=== PATIENT | male | born 1990 | race Two or more races ===

== ENCOUNTER 2021-01-18 16:38 | Emergency (ER) | payer MEDICAID, OTHER ==
[~2021-01-18] VITALS: Ht 170.2 cm; Wt 63.5 kg
[2021-01-18 18:42] VITALS: BP 118/58
[2021-01-18] MEDS ORDERED: IBUPROFEN 800 MG TAB PO ONE (18:45)
== END 2021-01-18 19:56 | disposition home or self-care (01) ==
LOC: ER 16:38
DX: S46.912A Strain of unspecified muscle, fascia and tendon at shoulder and upper arm level, left arm, initial encounter (principal); W19.XXXA Unspecified fall, initial encounter; Y93.89 Activity, other specified; Y92.89 Other specified places as the place of occurrence of the external cause; Y99.8 Other external cause status
CPT/HCPCS: 71045; 73030

== ENCOUNTER 2021-06-06 18:18 | Emergency (ER) | payer MEDICAID ==
[~2021-06-06] VITALS: Ht 172.7 cm; Wt 86.2 kg
[2021-06-06 18:43] VITALS: BP 126/68
== END 2021-06-06 19:30 | disposition home or self-care (01) ==
LOC: ER 18:19
DX: S11.81XD Laceration without foreign body of other specified part of neck, subsequent encounter (principal); X58.XXXD Exposure to other specified factors, subsequent encounter

== ENCOUNTER 2021-06-09 16:51 | Emergency (ER) | payer MEDICAID ==
[~2021-06-09] VITALS: Ht 172.7 cm; Wt 86.2 kg
[2021-06-09] MEDS ORDERED: SODIUM CHLORIDE 0.9% 1,000 ML IVB ONE (17:15)
[2021-06-09 18:34] LABS: Alcohol, Urine < 3.0 mg/dL (0-10); Amphetamine Screen, Urine NEGATIVE (NEGATIVE); Barbiturate Scree,Urine NEGATIVE (NEGATIVE); Benzodiazephine Screen, Urine NEGATIVE (NEGATIVE); Cannabinoid Screen, Urine NEGATIVE (NEGATIVE); Cocaine Screen, Urine NEGATIVE (NEGATIVE); Opiate Scree,Urine NEGATIVE (NEGATIVE); Phencyclidine Screen, Urine NEGATIVE (NEGATIVE)
[2021-06-09 19:26] LABS: Basophils # (auto) 0 10 ^3/uL (0-0.2); Basophils % (auto) 0.3 % (0.0-2.0); Eosinophils # (auto) 0.1 10 ^3/uL (0-0.8); Eosinophils % (auto) 1.2 % (0.0-7.0); Hematocrit 37.8 % (41.0-53.0); Hemoglobin 12.9 g/dL (13.5-17.5); Lymphocytes # (auto) 2.2 10 ^3/uL (0.4-5.4); Lymphocytes % (auto) 28.5 % (10.0-50.0); Mean Corpuscular Hemoglobin 30.6 pg (28.0-32.0); Mean Corpuscular Hgb Conc. 34.3 g/dL (32.0-36.0); Mean Corpuscular Volume 89.3 fL (80.0-100.0); Monocytes # (auto) 0.3 10 ^3/uL (0-1.3); Monocytes % (auto) 3.9 % (0.0-12.0); Neutrophils % (auto) 66.1 % (37.0-80.0); Red Blood Cells 4.23 10^6/uL (4.5-5.90); Red Cell Distribution Width 13.9 % (11.8-14.3); White Blood Cell 7.6 10^3/uL (4.4-10.8)
[2021-06-09 19:40] LABS: Alanine Aminotransferase 30 U/L (16-61); Albumin 3.2 g/dL (3.4-5.0); Anion Gap 9 (5-15); Aspartate Aminotransferase 9 U/L (15-37); BUN/Creatinine Ratio 9.3; Blood Alcohol < 3.0 mg/dL (0-5); Blood Urea Nitrogen 10 mg/dL (7-18); Calcium 7.7 mg/dL (8.5-10.1); Carbon Dioxide 23 mmol/L (21-32); Chloride 112 mmol/L (98-107); GFR African American 101 mL/min; GFR Non-African American 84 mL/min; Glucose 99 mg/dL (74-106); Magnesium 2.4 mg/dL (1.6-2.6); Potassium 4.1 mmol/L (3.5-5.1); Sodium 144 mmol/L (136-145)
[2021-06-09 19:42] LABS: Alkaline Phosphatase 61 U/L (45-117); Bilirubin, Total 0.1 mg/dL (0.2-1.0)
[2021-06-09 19:46] LABS: Salicylate < 1.7 mg/dL (2.8-20.0)
[2021-06-09 19:49] LABS: Acetaminophen < 2.0 ug/mL (10-30)
[2021-06-09] MEDS ORDERED: ACTIVATED CHARCOAL 50 GM/240 ML SOL PO ONE (21:00)
[2021-06-09] MEDS: LEVOCARNITINE 330 MG TAB PO SCH (22:16)
[2021-06-10] MEDS: LEVOCARNITINE 330 MG TAB PO SCH ×2 (06:00→15:59)
[2021-06-10] MEDS ORDERED: SODIUM CHLORIDE 0.9% 1,000 ML IVB ONE (08:15)
[2021-06-10 09:29] LABS: Blood Alcohol < 3.0 mg/dL (0-5); Magnesium 2.2 mg/dL (1.6-2.6)
[2021-06-10 10:16] LABS: Urine Bacteria NONE SEEN /hpf (None Seen); Urine Blood Negative /uL (Negative); Urine Mucus FEW (None Seen); Urine Specific Gravity 1.028 (1.001-1.035); Urine WBC 2 /hpf (0 - 3)
[2021-06-10 10:29] LABS: Alcohol, Urine < 3.0 mg/dL (0-10); Amphetamine Screen, Urine NEGATIVE (NEGATIVE); Barbiturate Scree,Urine NEGATIVE (NEGATIVE); Benzodiazephine Screen, Urine NEGATIVE (NEGATIVE); Cannabinoid Screen, Urine NEGATIVE (NEGATIVE); Cocaine Screen, Urine NEGATIVE (NEGATIVE); Opiate Scree,Urine NEGATIVE (NEGATIVE); Phencyclidine Screen, Urine NEGATIVE (NEGATIVE)
[2021-06-10 10:30] LABS: Calcium 7.4 mg/dL (8.5-10.1); Potassium 3.7 mmol/L (3.5-5.1)
[2021-06-10 10:33] LABS: BUN/Creatinine Ratio 14.3; Bilirubin, Total 0.3 mg/dL (0.2-1.0); Total Protein 6.7 g/dL (6.4-8.2)
[2021-06-11] MEDS: OLANZapine 5 MG TAB PO SCH ×4 (06:58→21:35)
[2021-06-11] MEDS: TEMAZEPAM 15 MG CAP PO PRN (20:54)
[2021-06-12] MEDS: OLANZapine 5 MG TAB PO SCH ×4 (06:22→21:56)
[2021-06-12] MEDS: TEMAZEPAM 15 MG CAP PO PRN (21:56)
[2021-06-13] MEDS ORDERED: OLANZapine 5 MG TAB ONE ×2 (06:43→13:05)
[2021-06-13] MEDS: OLANZapine 5 MG TAB PO SCH ×4 (06:56→21:57)
[2021-06-13] MEDS ORDERED: ACETAMINOPHEN 325 MG TAB PO ONE (14:45)
[2021-06-14] MEDS: OLANZapine 5 MG TAB PO SCH (06:58)
[2021-06-14 07:45] VITALS: BP 116/71
[2021-07-02] MEDS ORDERED: BUPR100T15 PO (19:07)
== END 2021-06-14 12:45 | disposition left against medical advice (07) ==
LOC: ER 16:51 → EDBD 16:51 → ER 06-14 12:45
DX: T42.6X1A Poisoning by other antiepileptic and sedative-hypnotic drugs, accidental (unintentional), initial encounter (principal); Z20.822 Contact with and (suspected) exposure to COVID-19; Y92.89 Other specified places as the place of occurrence of the external cause
CPT/HCPCS: 36415; 71046; 80053; 80164; 80307; 80320; 80329; 81001; 82140; 83735; 85025; 87426; 93005; 96360; 96361; 99285; J7030

== ENCOUNTER 2021-06-16 16:10 | Inpatient (IN) | payer MEDICAID ==
[~2021-06-16] VITALS: Ht 172.7 cm; Wt 74.7 kg
[2021-06-16] MEDS ORDERED: HALOPERIDOL LACTATE 5 MG/ML INJ VIAL ONE (17:36)
[2021-06-16] MEDS ORDERED: LORazepam 2MG/ML-1ML VIAL ONE ×2 (17:36→21:10)
[2021-06-16] MEDS ORDERED: diphenhdrAMINE HCL 50 MG/1 ML VL ONE (17:36)
[2021-06-16] MEDS ORDERED: MIDAZOLAM HCL 2MG/2ML 2ml VIAL (1mg/ml) ONE (18:10)
[2021-06-16] MEDS ORDERED: HALOPERIDOL LACTATE 5 MG/ML INJ VIAL IM ONE (18:15)
[2021-06-16] MEDS ORDERED: MIDAZOLAM HCL 5 MG/ML-1ML VIAL IV ONE (18:15)
[2021-06-16] MEDS ORDERED: diphenhdrAMINE HCL 50 MG/1 ML VL IV ONE (18:15)
[2021-06-16] MEDS ORDERED: LORazepam 2MG/ML-1ML VIAL IM ONE (18:15)
[2021-06-16 19:16] LABS: Basophils # (auto) 0 10 ^3/uL (0-0.2); Basophils % (auto) 0.4 % (0.0-2.0); Eosinophils # (auto) 0.1 10 ^3/uL (0-0.8); Eosinophils % (auto) 0.8 % (0.0-7.0); Hematocrit 36.8 % (41.0-53.0); Hemoglobin 12.7 g/dL (13.5-17.5); Lymphocytes # (auto) 1.1 10 ^3/uL (0.4-5.4); Lymphocytes % (auto) 11.7 % (10.0-50.0); Mean Corpuscular Hemoglobin 30.6 pg (28.0-32.0); Mean Corpuscular Hgb Conc. 34.6 g/dL (32.0-36.0); Mean Corpuscular Volume 88.4 fL (80.0-100.0); Monocytes # (auto) 0.5 10 ^3/uL (0-1.3); Monocytes % (auto) 5.5 % (0.0-12.0); Neutrophils # (auto) 7.5 10 ^3/uL (1.6-8.6); Neutrophils % (auto) 81.6 % (37.0-80.0); Nucleated Red Blood Cells % 0.1 %; Red Blood Cells 4.16 10^6/uL (4.5-5.90); Red Cell Distribution Width 14.4 % (11.8-14.3); White Blood Cell 9.2 10^3/uL (4.4-10.8)
[2021-06-16 19:26] LABS: Albumin 3.5 g/dL (3.4-5.0); BUN/Creatinine Ratio 8.5; Calcium 8.1 mg/dL (8.5-10.1); Potassium 3.4 mmol/L (3.5-5.1)
[2021-06-16 19:29] LABS: Bilirubin, Total 0.2 mg/dL (0.2-1.0); Total Protein 7.1 g/dL (6.4-8.2)
[2021-06-16 19:35] LABS: Acetaminophen < 2.0 ug/mL (10-30); Salicylate < 1.7 mg/dL (2.8-20.0)
[2021-06-16 20:24] LABS: Urine Bacteria FEW /hpf (None Seen); Urine Blood Negative /uL (Negative); Urine Mucus FEW (None Seen); Urine Specific Gravity 1.022 (1.001-1.035); Urine WBC 1 /hpf (0 - 3)
[2021-06-16 20:54] LABS: Amphetamine Screen, Urine NEGATIVE (NEGATIVE); Barbiturate Scree,Urine NEGATIVE (NEGATIVE); Benzodiazephine Screen, Urine POSITIVE (NEGATIVE); Cannabinoid Screen, Urine NEGATIVE (NEGATIVE); Cocaine Screen, Urine NEGATIVE (NEGATIVE); Opiate Scree,Urine NEGATIVE (NEGATIVE); Phencyclidine Screen, Urine NEGATIVE (NEGATIVE)
[2021-06-16] MEDS ORDERED: LORazepam 2MG/ML-1ML VIAL IV ONE (21:30)
[2021-06-16] MEDS ORDERED: TEMAZEPAM 15 MG CAP PO PRN (22:15)
[2021-06-16] MEDS ORDERED: NITROGLYCERIN 0.4 MG SL TAB SL PRN (22:15)
[2021-06-16] MEDS ORDERED: ACETAMINOPHEN 325 MG TAB PO PRN (22:15)
[2021-06-16] MEDS ORDERED: ONDANSETRON HCL 4 MG/2 ML VIAL IV PRN (22:15)
[2021-06-16] MEDS ORDERED: MORPHINE SULFATE INJECTION 2 MG/2 ML SYRG IV PRN (22:15)
[2021-06-16] MEDS ORDERED: HYDROcodone-ACET 5/325MG TAB PO PRN (22:15)
[2021-06-17 05:15] LABS: Basophils # (auto) 0.1 10 ^3/uL (0-0.2); Basophils % (auto) 0.5 % (0.0-2.0); Eosinophils # (auto) 0.1 10 ^3/uL (0-0.8); Eosinophils % (auto) 0.5 % (0.0-7.0); Hematocrit 38.6 % (41.0-53.0); Hemoglobin 13.3 g/dL (13.5-17.5); Lymphocytes # (auto) 1.5 10 ^3/uL (0.4-5.4); Lymphocytes % (auto) 10.7 % (10.0-50.0); Mean Corpuscular Hemoglobin 30.4 pg (28.0-32.0); Mean Corpuscular Hgb Conc. 34.5 g/dL (32.0-36.0); Mean Corpuscular Volume 88.3 fL (80.0-100.0); Monocytes # (auto) 1.3 10 ^3/uL (0-1.3); Monocytes % (auto) 9.5 % (0.0-12.0); Neutrophils # (auto) 10.8 10 ^3/uL (1.6-8.6); Neutrophils % (auto) 78.8 % (37.0-80.0); Red Blood Cells 4.38 10^6/uL (4.5-5.90); Red Cell Distribution Width 14.3 % (11.8-14.3); White Blood Cell 13.7 10^3/uL (4.4-10.8)
[2021-06-17 05:16] LABS: Calcium 8.3 mg/dL (8.5-10.1); Potassium 3.8 mmol/L (3.5-5.1)
[2021-06-17 05:19] LABS: Albumin 3.5 g/dL (3.4-5.0); BUN/Creatinine Ratio 9.7
[2021-06-17 05:22] LABS: Bilirubin, Total 0.3 mg/dL (0.2-1.0); Total Protein 7.5 g/dL (6.4-8.2)
[2021-06-17] MEDS: LORazepam 2MG/ML-1ML VIAL IV PRN ×3 (08:25→15:44)
[2021-06-17] MEDS ORDERED: HALOPERIDOL LACTATE 5 MG/ML INJ VIAL IM ONE ×2 (08:45→17:45)
[2021-06-17] MEDS ORDERED: diphenhdrAMINE HCL 50 MG/1 ML VL IV ONE ×2 (08:45→17:45)
[2021-06-17] MEDS ORDERED: LORazepam 2MG/ML-1ML VIAL IV ONE (09:30)
[2021-06-17] MEDS ORDERED: SODIUM CHLORIDE 0.9% 1,000 ML IV ONE ×2 (09:30)
[2021-06-17] MEDS: FAMOTIDINE (10MG/ML) 2ML VL IV SCH ×2 (12:23→22:41)
[2021-06-17] MEDS: ENOXAPARIN SOD 40 MG/0.4 ML SYRINGE SC SCH (12:23)
[2021-06-17] MEDS: FOLIC ACID 1 MG, MULTIPLE VITAMIN 10 ML, MAGNESIUM SULF SDV 50% 8 MEQ, THIAMINE INJ 100... INJ SCH ×5 (13:09)
[2021-06-17] MEDS ORDERED: LORazepam 2MG/ML-1ML VIAL IV PRN (17:45)
[2021-06-18] MEDS: MIDAZOLAM DRIP 50 mg/50mL 50 ML IV SCH ×2 (03:00→20:00)
[2021-06-18] MEDS: LORazepam 2MG/ML-1ML VIAL IV PRN ×2 (05:36→15:49)
[2021-06-18] MEDS ORDERED: HALOPERIDOL LACTATE 5 MG/ML INJ VIAL IM ONE (06:00)
[2021-06-18] MEDS: FAMOTIDINE (10MG/ML) 2ML VL IV SCH ×2 (11:24→22:48)
[2021-06-18] MEDS: ENOXAPARIN SOD 40 MG/0.4 ML SYRINGE SC SCH (11:24)
[2021-06-18] MEDS: FOLIC ACID 1 MG, MULTIPLE VITAMIN 10 ML, MAGNESIUM SULF SDV 50% 8 MEQ, THIAMINE INJ 100... INJ SCH ×5 (12:02)
[2021-06-18] MEDS: VALPROATE INJ 500 MG in SODIUM CHL 0.9% 100 ML IV SCH ×2 (15:55→22:52)
[2021-06-18] MEDS ORDERED: HALOPERIDOL LACTATE 5 MG/ML INJ VIAL IM PRN (16:00)
[2021-06-18] MEDS ORDERED: SUCCINYLCHOLINE CHLORIDE 20 MG/ML 10ML VIAL IV ONE ×2 (17:58→18:00)
[2021-06-18 18:00] VITALS: BP 110/82
[2021-06-18] MEDS ORDERED: MIDAZOLAM DRIP 50 mg/50mL 50 ML IV ONE (18:01)
[2021-06-18] MEDS ORDERED: ETOMIDATE (2MG/ML) 20ML VIAL IV ONE ×2 (18:02→18:15)
[2021-06-18] MEDS ORDERED: NOREPINEPHRINE 8 MG/250ML KIT 250 ML IV ONE (18:10)
[2021-06-18] MEDS ORDERED: PROPOFOL 100 ML IV ONE (18:11)
[2021-06-18] MEDS ORDERED: fentaNYL Drip 2500mCg/250mlNS 250 ML IV ONE (18:12)
[2021-06-18] MEDS: fentaNYL Drip 2500mCg/250mlNS 250 ML IV SCH (20:00)
[2021-06-18] MEDS: PROPOFOL 100 ML IV SCH (20:00)
[2021-06-18] MEDS: NOREPINEPHRINE 8 MG/250ML KIT 250 ML IV SCH (20:00)
[2021-06-18 20:10] VITALS: BP 113/64
[2021-06-18] MEDS: traZODone HCL 50 MG TAB PO SCH (21:47)
[2021-06-18 22:05] VITALS: BP 107/63
[2021-06-19] VITALS (84 sets, daily range): BP systolic 82–124; BP diastolic 39–71
[2021-06-19] MEDS: ACETAMINOPHEN 650 MG RECT SUPP PR PRN (03:59)
[2021-06-19] MEDS: PROPOFOL 100 ML IV SCH ×7 (04:00→18:30)
[2021-06-19] MEDS: MIDAZOLAM DRIP 50 mg/50mL 50 ML IV SCH ×3 (08:28→14:45)
[2021-06-19] MEDS: OLANZapine 5 MG TAB PO SCH (09:55)
[2021-06-19] MEDS: FAMOTIDINE (10MG/ML) 2ML VL IV SCH ×2 (09:55→22:00)
[2021-06-19] MEDS: ENOXAPARIN SOD 40 MG/0.4 ML SYRINGE SC SCH (09:55)
[2021-06-19] MEDS: EMTRICITABINE 200 MG PO SCH (10:00)
[2021-06-19] MEDS: VALPROATE INJ 500 MG in SODIUM CHL 0.9% 100 ML IV SCH ×2 (10:08→22:00)
[2021-06-19] MEDS: FOLIC ACID 1 MG, MULTIPLE VITAMIN 10 ML, MAGNESIUM SULF SDV 50% 8 MEQ, THIAMINE INJ 100... INJ SCH ×5 (11:28)
[2021-06-19 14:43] LABS: Basophils # (auto) 0.1 10 ^3/uL (0-0.2); Basophils % (auto) 0.4 % (0.0-2.0); Eosinophils # (auto) 0.1 10 ^3/uL (0-0.8); Eosinophils % (auto) 0.7 % (0.0-7.0); Hematocrit 41.4 % (41.0-53.0); Hemoglobin 14.3 g/dL (13.5-17.5); Lymphocytes # (auto) 1.6 10 ^3/uL (0.4-5.4); Lymphocytes % (auto) 11.9 % (10.0-50.0); Mean Corpuscular Hemoglobin 30.4 pg (28.0-32.0); Mean Corpuscular Hgb Conc. 34.5 g/dL (32.0-36.0); Mean Corpuscular Volume 88.2 fL (80.0-100.0); Monocytes # (auto) 1.5 10 ^3/uL (0-1.3); Monocytes % (auto) 11.5 % (0.0-12.0); Neutrophils # (auto) 10.2 10 ^3/uL (1.6-8.6); Neutrophils % (auto) 75.5 % (37.0-80.0); Red Cell Distribution Width 14.3 % (11.8-14.3); White Blood Cell 13.5 10^3/uL (4.4-10.8)
[2021-06-19] MEDS: cefTRIAXone 1GM/50ML D5W 50 ML IV SCH (14:44)
[2021-06-19 15:00] LABS: Albumin 2.9 g/dL (3.4-5.0); Magnesium 2.7 mg/dL (1.6-2.6); Potassium 3.4 mmol/L (3.5-5.1)
[2021-06-19 15:04] LABS: BUN/Creatinine Ratio 8.9; Bilirubin, Total 0.9 mg/dL (0.2-1.0); Phosphorus 4.5 mg/dL (2.5-4.90); Total Protein 7.6 g/dL (6.4-8.2)
[2021-06-19 15:05] LABS: INR 1.03 (0.9-1.15); Partial Thromboplastin Time 26.7 sec (23.0-31.2)
[2021-06-19] MEDS: fentaNYL Drip 2500mCg/250mlNS 250 ML IV SCH ×2 (17:17→18:30)
[2021-06-19] MEDS: NOREPINEPHRINE 8 MG/250ML KIT 250 ML IV SCH (18:30)
[2021-06-19] MEDS: SODIUM CHLOR 0.9% PF (SALINE LOCK) 10ML VIAL/SYR IV SCH (22:00)
[2021-06-19 22:50] LABS: Urine Bacteria NONE SEEN /hpf (None Seen); Urine Blood Negative /uL (Negative); Urine WBC 5 /hpf (0 - 3)
[2021-06-19] MEDS: traZODone HCL 50 MG TAB PO SCH (23:45)
[2021-06-20] VITALS (98 sets, daily range): BP systolic 82–138; BP diastolic 41–78
[2021-06-20] MEDS: MIDAZOLAM DRIP 50 mg/50mL 50 ML IV SCH ×6 (00:45→20:45)
[2021-06-20] MEDS: PROPOFOL 100 ML IV SCH ×6 (03:54→19:05)
[2021-06-20 04:26] LABS: Basophils # (auto) 0 10 ^3/uL (0-0.2); Basophils % (auto) 0.2 % (0.0-2.0); Eosinophils # (auto) 0.2 10 ^3/uL (0-0.8); Eosinophils % (auto) 2.2 % (0.0-7.0); Hematocrit 33.7 % (41.0-53.0); Lymphocytes # (auto) 1.8 10 ^3/uL (0.4-5.4); Lymphocytes % (auto) 16.4 % (10.0-50.0); Mean Corpuscular Hgb Conc. 35.6 g/dL (32.0-36.0); Mean Corpuscular Volume 87.3 fL (80.0-100.0); Monocytes # (auto) 1.6 10 ^3/uL (0-1.3); Monocytes % (auto) 14.8 % (0.0-12.0); Neutrophils # (auto) 7.3 10 ^3/uL (1.6-8.6); Neutrophils % (auto) 66.4 % (37.0-80.0); Red Blood Cells 3.87 10^6/uL (4.5-5.90); Red Cell Distribution Width 13.7 % (11.8-14.3); White Blood Cell 10.9 10^3/uL (4.4-10.8)
[2021-06-20 04:51] LABS: Potassium 3.6 mmol/L (3.5-5.1)
[2021-06-20 04:57] LABS: Albumin 2.3 g/dL (3.4-5.0); BUN/Creatinine Ratio 10.3; Bilirubin, Total 0.8 mg/dL (0.2-1.0); Calcium 7.6 mg/dL (8.5-10.1); Magnesium 2.8 mg/dL (1.6-2.6); Total Protein 6.6 g/dL (6.4-8.2)
[2021-06-20] MEDS: cefTRIAXone 1GM/50ML D5W 50 ML IV SCH (09:09)
[2021-06-20] MEDS: ENOXAPARIN SOD 40 MG/0.4 ML SYRINGE SC SCH (09:10)
[2021-06-20] MEDS: OLANZapine 5 MG TAB PO SCH (09:10)
[2021-06-20] MEDS: fentaNYL Drip 2500mCg/250mlNS 250 ML IV SCH (09:10)
[2021-06-20] MEDS: VALPROATE INJ 500 MG in SODIUM CHL 0.9% 100 ML IV SCH ×2 (09:11→22:00)
[2021-06-20] MEDS: FAMOTIDINE (10MG/ML) 2ML VL IV SCH ×2 (09:11→22:00)
[2021-06-20] MEDS: SODIUM CHLOR 0.9% PF (SALINE LOCK) 10ML VIAL/SYR IV SCH ×2 (09:11→22:00)
[2021-06-20] MEDS: EMTRICITABINE 200 MG PO SCH (10:00)
[2021-06-20] MEDS: AZITHROMYCIN 500MG/ 250ML 250 ML IV SCH (11:08)
[2021-06-20] MEDS: FOLIC ACID 1 MG, MULTIPLE VITAMIN 10 ML, MAGNESIUM SULF SDV 50% 8 MEQ, THIAMINE INJ 100... INJ SCH ×5 (12:10)
[2021-06-20] MEDS: D5W/SOD CHL 0.45% 1,000 ML IV SCH (14:30)
[2021-06-20] MEDS: LORazepam 2MG/ML-1ML VIAL IV PRN (16:28)
[2021-06-20] MEDS: NOREPINEPHRINE 8 MG/250ML KIT 250 ML IV SCH (18:45)
[2021-06-20] MEDS: traZODone HCL 50 MG TAB PO SCH (22:00)
[2021-06-21] VITALS (89 sets, daily range): BP systolic 89–152; BP diastolic 36–78
[2021-06-21 04:07] LABS: Basophils # (auto) 0.1 10 ^3/uL (0-0.2); Basophils % (auto) 0.6 % (0.0-2.0); Eosinophils # (auto) 0.3 10 ^3/uL (0-0.8); Eosinophils % (auto) 3.2 % (0.0-7.0); Hematocrit 31.4 % (41.0-53.0); Hemoglobin 11.4 g/dL (13.5-17.5); Lymphocytes # (auto) 1.9 10 ^3/uL (0.4-5.4); Lymphocytes % (auto) 19.6 % (10.0-50.0); Mean Corpuscular Hemoglobin 31.3 pg (28.0-32.0); Mean Corpuscular Hgb Conc. 36.2 g/dL (32.0-36.0); Mean Corpuscular Volume 86.5 fL (80.0-100.0); Monocytes # (auto) 1.1 10 ^3/uL (0-1.3); Neutrophils # (auto) 6.5 10 ^3/uL (1.6-8.6); Neutrophils % (auto) 65.6 % (37.0-80.0); Red Blood Cells 3.63 10^6/uL (4.5-5.90); Red Cell Distribution Width 13.8 % (11.8-14.3); White Blood Cell 9.9 10^3/uL (4.4-10.8)
[2021-06-21 04:28] LABS: BUN/Creatinine Ratio 9.7; Calcium 7.8 mg/dL (8.5-10.1); Potassium 4.1 mmol/L (3.5-5.1)
[2021-06-21] MEDS: MIDAZOLAM DRIP 50 mg/50mL 50 ML IV SCH ×4 (06:45→21:45)
[2021-06-21] MEDS: PROPOFOL 100 ML IV SCH ×7 (08:33→19:17)
[2021-06-21] MEDS: cefTRIAXone 1GM/50ML D5W 50 ML IV SCH (08:33)
[2021-06-21] MEDS: AZITHROMYCIN 500MG/ 250ML 250 ML IV SCH (09:30)
[2021-06-21] MEDS: SODIUM CHLOR 0.9% PF (SALINE LOCK) 10ML VIAL/SYR IV SCH ×2 (10:00→23:10)
[2021-06-21] MEDS: EMTRICITABINE 200 MG PO SCH (10:00)
[2021-06-21] MEDS: D5W/SOD CHL 0.45% 1,000 ML IV SCH (10:00)
[2021-06-21] MEDS ORDERED: ENOXAPARIN SOD 60 MG/0.6 ML SYRINGE SC ONE (10:18)
[2021-06-21] MEDS: FAMOTIDINE (10MG/ML) 2ML VL IV SCH ×2 (11:15→23:09)
[2021-06-21] MEDS: OLANZapine 5 MG TAB PO SCH (11:15)
[2021-06-21] MEDS: ENOXAPARIN SOD 40 MG/0.4 ML SYRINGE SC SCH (11:16)
[2021-06-21] MEDS: FOLIC ACID 1 MG, MULTIPLE VITAMIN 10 ML, MAGNESIUM SULF SDV 50% 8 MEQ, THIAMINE INJ 100... INJ SCH ×5 (11:50)
[2021-06-21] MEDS: NOREPINEPHRINE 8 MG/250ML KIT 250 ML IV SCH (11:51)
[2021-06-21] MEDS: VALPROATE INJ 500 MG in SODIUM CHL 0.9% 100 ML IV SCH ×2 (11:58→23:09)
[2021-06-21] MEDS: fentaNYL Drip 2500mCg/250mlNS 250 ML IV SCH (23:08)
[2021-06-21] MEDS: traZODone HCL 50 MG TAB PO SCH (23:10)
[2021-06-22] VITALS (90 sets, daily range): BP systolic 83–180; BP diastolic 35–80
[2021-06-22 04:31] LABS: Hematocrit 29.6 % (41.0-53.0); Monocytes # (auto) 0.7 10 ^3/uL (0-1.3); Neutrophils # (auto) 4.8 10 ^3/uL (1.6-8.6); Nucleated Red Blood Cells % 0.1 %; Red Blood Cells 3.44 10^6/uL (4.5-5.90)
[2021-06-22 04:32] LABS: Basophils # (auto) 0 10 ^3/uL (0-0.2); Basophils % (auto) 0.2 % (0.0-2.0); Eosinophils # (auto) 0.4 10 ^3/uL (0-0.8); Eosinophils % (auto) 5.8 % (0.0-7.0); Hemoglobin 10.8 g/dL (13.5-17.5); Lymphocytes # (auto) 1.4 10 ^3/uL (0.4-5.4); Lymphocytes % (auto) 18.8 % (10.0-50.0); Mean Corpuscular Hemoglobin 31.4 pg (28.0-32.0); Monocytes % (auto) 9.7 % (0.0-12.0); Neutrophils % (auto) 65.5 % (37.0-80.0); Red Cell Distribution Width 13.8 % (11.8-14.3); White Blood Cell 7.3 10^3/uL (4.4-10.8)
[2021-06-22 04:48] LABS: Potassium 3.5 mmol/L (3.5-5.1)
[2021-06-22 04:53] LABS: Mean Corpuscular Hgb Conc. 36.5 g/dL (32.0-36.0)
[2021-06-22 04:54] LABS: Albumin 2.1 g/dL (3.4-5.0); BUN/Creatinine Ratio 6.9; Bilirubin, Total 0.3 mg/dL (0.2-1.0); Calcium 7.6 mg/dL (8.5-10.1); Magnesium 2.2 mg/dL (1.6-2.6); Phosphorus 3.8 mg/dL (2.5-4.90); Total Protein 6.2 g/dL (6.4-8.2)
[2021-06-22] MEDS: D5W/SOD CHL 0.45% 1,000 ML IV SCH ×2 (06:00→15:48)
[2021-06-22] MEDS: PROPOFOL 100 ML IV SCH ×4 (07:28→18:03)
[2021-06-22] MEDS: MIDAZOLAM DRIP 50 mg/50mL 50 ML IV SCH ×4 (07:45→19:03)
[2021-06-22] MEDS: cefTRIAXone 1GM/50ML D5W 50 ML IV SCH (08:44)
[2021-06-22] MEDS: fentaNYL Drip 2500mCg/250mlNS 250 ML IV SCH (08:57)
[2021-06-22] MEDS: EMTRICITABINE 200 MG PO SCH (10:00)
[2021-06-22] MEDS: FAMOTIDINE (10MG/ML) 2ML VL IV SCH ×2 (10:21→22:00)
[2021-06-22] MEDS: OLANZapine 5 MG TAB PO SCH (10:21)
[2021-06-22] MEDS: ENOXAPARIN SOD 40 MG/0.4 ML SYRINGE SC SCH (10:21)
[2021-06-22] MEDS: VALPROATE INJ 500 MG in SODIUM CHL 0.9% 100 ML IV SCH ×2 (10:22→22:00)
[2021-06-22] MEDS: SODIUM CHLOR 0.9% PF (SALINE LOCK) 10ML VIAL/SYR IV SCH ×2 (10:27→22:00)
[2021-06-22] MEDS: ACETAMINOPHEN 650 MG RECT SUPP PR PRN (11:55)
[2021-06-22] MEDS: FOLIC ACID 1 MG, MULTIPLE VITAMIN 10 ML, MAGNESIUM SULF SDV 50% 8 MEQ, THIAMINE INJ 100... INJ SCH ×5 (11:57)
[2021-06-22] MEDS: NOREPINEPHRINE 8 MG/250ML KIT 250 ML IV SCH (18:45)
[2021-06-22] MEDS: traZODone HCL 50 MG TAB PO SCH (22:00)
[2021-06-23] VITALS (84 sets, daily range): BP systolic 87–150; BP diastolic 43–80
[2021-06-23 04:50] LABS: Albumin 2.5 g/dL (3.4-5.0); Calcium 8.1 mg/dL (8.5-10.1); Magnesium 2.3 mg/dL (1.6-2.6); Potassium 3.5 mmol/L (3.5-5.1)
[2021-06-23 04:55] LABS: Bilirubin, Total 0.6 mg/dL (0.2-1.0); Phosphorus 4.4 mg/dL (2.5-4.90); Total Protein 6.8 g/dL (6.4-8.2)
[2021-06-23 05:24] LABS: Basophils # (auto) 0 10 ^3/uL (0-0.2); Basophils % (auto) 0.7 % (0.0-2.0); Eosinophils # (auto) 0.4 10 ^3/uL (0-0.8); Eosinophils % (auto) 6.9 % (0.0-7.0); Hematocrit 31.2 % (41.0-53.0); Hemoglobin 11.3 g/dL (13.5-17.5); Lymphocytes # (auto) 1.1 10 ^3/uL (0.4-5.4); Lymphocytes % (auto) 20.7 % (10.0-50.0); Mean Corpuscular Hemoglobin 31.2 pg (28.0-32.0); Mean Corpuscular Hgb Conc. 36.2 g/dL (32.0-36.0); Mean Corpuscular Volume 86.3 fL (80.0-100.0); Monocytes # (auto) 0.7 10 ^3/uL (0-1.3); Monocytes % (auto) 12.4 % (0.0-12.0); Neutrophils # (auto) 3.3 10 ^3/uL (1.6-8.6); Neutrophils % (auto) 59.3 % (37.0-80.0); Red Blood Cells 3.62 10^6/uL (4.5-5.90); Red Cell Distribution Width 13.8 % (11.8-14.3); White Blood Cell 5.5 10^3/uL (4.4-10.8)
[2021-06-23] MEDS: MIDAZOLAM DRIP 50 mg/50mL 50 ML IV SCH ×4 (08:27→18:45)
[2021-06-23] MEDS: fentaNYL Drip 2500mCg/250mlNS 250 ML IV SCH ×2 (08:30→22:32)
[2021-06-23] MEDS: PROPOFOL 100 ML IV SCH ×6 (09:15→23:59)
[2021-06-23] MEDS: ACETAMINOPHEN 650 MG RECT SUPP PR PRN ×2 (09:43→20:02)
[2021-06-23] MEDS: FAMOTIDINE (10MG/ML) 2ML VL IV SCH ×2 (09:43→22:42)
[2021-06-23] MEDS: cefTRIAXone 1GM/50ML D5W 50 ML IV SCH (09:44)
[2021-06-23] MEDS: OLANZapine 5 MG TAB PO SCH (09:44)
[2021-06-23] MEDS: ENOXAPARIN SOD 40 MG/0.4 ML SYRINGE SC SCH (09:44)
[2021-06-23] MEDS: VALPROATE INJ 500 MG in SODIUM CHL 0.9% 100 ML IV SCH ×2 (09:45→22:43)
[2021-06-23] MEDS: EMTRICITABINE 200 MG PO SCH (09:46)
[2021-06-23] MEDS: SODIUM CHLOR 0.9% PF (SALINE LOCK) 10ML VIAL/SYR IV SCH ×2 (09:46→22:48)
[2021-06-23] MEDS: NOREPINEPHRINE 8 MG/250ML KIT 250 ML IV SCH (13:27)
[2021-06-23] MEDS: FOLIC ACID 1 MG, MULTIPLE VITAMIN 10 ML, MAGNESIUM SULF SDV 50% 8 MEQ, THIAMINE INJ 100... INJ SCH ×5 (13:28)
[2021-06-23] MEDS ORDERED: IOHEXOL 350 MG/ML 100ML IJ ONE (14:24)
[2021-06-23] MEDS ORDERED: TRAZ100T3 PO (19:02)
[2021-06-23] MEDS ORDERED: DIVA500T2 PO (19:02)
[2021-06-23] MEDS ORDERED: [UNRECOGNIZED DRUG - CODE] IM (19:02)
[2021-06-23] MEDS ORDERED: OLAN10TA PO (19:02)
[2021-06-23] MEDS: traZODone HCL 50 MG TAB PO SCH (22:00)
[2021-06-23] MEDS: D5W/SOD CHL 0.45% 1,000 ML IV SCH (22:00)
[2021-06-24] VITALS (105 sets, daily range): BP systolic 78–146; BP diastolic 41–79
[2021-06-24] MEDS: MIDAZOLAM DRIP 50 mg/50mL 50 ML IV SCH ×5 (00:01→18:24)
[2021-06-24] MEDS: PROPOFOL 100 ML IV SCH ×6 (03:25→20:13)
[2021-06-24 03:56] LABS: Basophils # (auto) 0.1 10 ^3/uL (0-0.2); Basophils % (auto) 0.7 % (0.0-2.0); Eosinophils # (auto) 0.3 10 ^3/uL (0-0.8); Eosinophils % (auto) 4.2 % (0.0-7.0); Hematocrit 32.1 % (41.0-53.0); Hemoglobin 11.4 g/dL (13.5-17.5); Lymphocytes # (auto) 1.1 10 ^3/uL (0.4-5.4); Lymphocytes % (auto) 14.9 % (10.0-50.0); Mean Corpuscular Hemoglobin 30.8 pg (28.0-32.0); Mean Corpuscular Hgb Conc. 35.6 g/dL (32.0-36.0); Mean Corpuscular Volume 86.4 fL (80.0-100.0); Monocytes # (auto) 0.7 10 ^3/uL (0-1.3); Monocytes % (auto) 10.2 % (0.0-12.0); Neutrophils # (auto) 5.1 10 ^3/uL (1.6-8.6); Nucleated Red Blood Cells % 0.1 %; Red Blood Cells 3.71 10^6/uL (4.5-5.90); Red Cell Distribution Width 13.5 % (11.8-14.3); White Blood Cell 7.3 10^3/uL (4.4-10.8)
[2021-06-24 04:09] LABS: Albumin 2.2 g/dL (3.4-5.0); Magnesium 2.4 mg/dL (1.6-2.6); Potassium 3.9 mmol/L (3.5-5.1)
[2021-06-24 04:13] LABS: BUN/Creatinine Ratio 11.9; Bilirubin, Total 0.7 mg/dL (0.2-1.0); Total Protein 6.9 g/dL (6.4-8.2)
[2021-06-24] MEDS: ACETAMINOPHEN 650 MG RECT SUPP PR PRN (06:09)
[2021-06-24] MEDS: cefTRIAXone 1GM/50ML D5W 50 ML IV SCH (08:56)
[2021-06-24] MEDS: EMTRICITABINE 200 MG PO SCH (10:00)
[2021-06-24] MEDS: VALPROATE INJ 500 MG in SODIUM CHL 0.9% 100 ML IV SCH ×2 (10:13→22:07)
[2021-06-24] MEDS: OLANZapine 5 MG TAB PO SCH (10:14)
[2021-06-24] MEDS: ENOXAPARIN SOD 40 MG/0.4 ML SYRINGE SC SCH (10:14)
[2021-06-24] MEDS: FAMOTIDINE (10MG/ML) 2ML VL IV SCH ×2 (10:14→22:07)
[2021-06-24] MEDS: SODIUM CHLOR 0.9% PF (SALINE LOCK) 10ML VIAL/SYR IV SCH ×2 (10:14→22:07)
[2021-06-24] MEDS: fentaNYL Drip 2500mCg/250mlNS 250 ML IV SCH (11:12)
[2021-06-24] MEDS: FOLIC ACID 1 MG, MULTIPLE VITAMIN 10 ML, MAGNESIUM SULF SDV 50% 8 MEQ, THIAMINE INJ 100... INJ SCH ×5 (11:52)
[2021-06-24] MEDS: D5W/SOD CHL 0.45% 1,000 ML IV SCH (18:23)
[2021-06-24] MEDS: NOREPINEPHRINE 8 MG/250ML KIT 250 ML IV SCH (18:24)
[2021-06-24] MEDS ORDERED: Glucerna 1.2 Cal 1Liter BOTTLE GT SCH (19:00)
[2021-06-24] MEDS: traZODone HCL 50 MG TAB PO SCH (22:07)
[2021-06-25] VITALS (90 sets, daily range): BP systolic 84–147; BP diastolic 35–91
[2021-06-25] MEDS: PROPOFOL 100 ML IV SCH ×5 (00:09→16:30)
[2021-06-25] MEDS: ALBUTEROL SULF 2.5 MG/0.5ML(0.5%) NEB SOLN NEB PRN ×4 (02:05→18:21)
[2021-06-25] MEDS: ACETYLCYSTEINE 20%(200MG/ML) SOL 4ML NEB SCH ×4 (02:05→18:21)
[2021-06-25] MEDS: MIDAZOLAM DRIP 50 mg/50mL 50 ML IV SCH ×4 (02:18→15:45)
[2021-06-25 03:43] LABS: Basophils # (auto) 0.1 10 ^3/uL (0-0.2); Basophils % (auto) 1.3 % (0.0-2.0); Eosinophils # (auto) 0.3 10 ^3/uL (0-0.8); Hematocrit 32.6 % (41.0-53.0); Hemoglobin 11.5 g/dL (13.5-17.5); Lymphocytes # (auto) 1.3 10 ^3/uL (0.4-5.4); Lymphocytes % (auto) 17.9 % (10.0-50.0); Mean Corpuscular Hemoglobin 30.4 pg (28.0-32.0); Mean Corpuscular Hgb Conc. 35.2 g/dL (32.0-36.0); Mean Corpuscular Volume 86.4 fL (80.0-100.0); Monocytes # (auto) 0.7 10 ^3/uL (0-1.3); Monocytes % (auto) 9.3 % (0.0-12.0); Neutrophils # (auto) 4.9 10 ^3/uL (1.6-8.6); Neutrophils % (auto) 67.5 % (37.0-80.0); Nucleated Red Blood Cells % 0.1 %; Red Blood Cells 3.78 10^6/uL (4.5-5.90); Red Cell Distribution Width 13.6 % (11.8-14.3); White Blood Cell 7.2 10^3/uL (4.4-10.8)
[2021-06-25 04:02] LABS: Albumin 2.4 g/dL (3.4-5.0); Calcium 7.9 mg/dL (8.5-10.1); Magnesium 2.1 mg/dL (1.6-2.6); Potassium 4.1 mmol/L (3.5-5.1)
[2021-06-25 04:05] LABS: Bilirubin, Total 0.4 mg/dL (0.2-1.0); Total Protein 6.9 g/dL (6.4-8.2)
[2021-06-25] MEDS: cefTRIAXone 1GM/50ML D5W 50 ML IV SCH (09:30)
[2021-06-25] MEDS: OLANZapine 5 MG TAB PO SCH (10:00)
[2021-06-25] MEDS: EMTRICITABINE 200 MG PO SCH (10:00)
[2021-06-25] MEDS: SODIUM CHLOR 0.9% PF (SALINE LOCK) 10ML VIAL/SYR IV SCH ×2 (10:45→22:00)
[2021-06-25] MEDS: ENOXAPARIN SOD 40 MG/0.4 ML SYRINGE SC SCH (10:45)
[2021-06-25] MEDS: FAMOTIDINE (10MG/ML) 2ML VL IV SCH ×2 (10:45→22:00)
[2021-06-25] MEDS: VALPROATE INJ 500 MG in SODIUM CHL 0.9% 100 ML IV SCH ×2 (11:19→22:00)
[2021-06-25] MEDS: FOLIC ACID 1 MG, MULTIPLE VITAMIN 10 ML, MAGNESIUM SULF SDV 50% 8 MEQ, THIAMINE INJ 100... INJ SCH ×5 (12:45)
[2021-06-25] MEDS: D5W/SOD CHL 0.45% 1,000 ML IV SCH (16:04)
[2021-06-25] MEDS: NOREPINEPHRINE 8 MG/250ML KIT 250 ML IV SCH (18:45)
[2021-06-25] MEDS: fentaNYL Drip 2500mCg/250mlNS 250 ML IV SCH (18:45)
[2021-06-25] MEDS: traZODone HCL 50 MG TAB PO SCH (22:00)
[2021-06-26] VITALS (80 sets, daily range): BP systolic 81–175; BP diastolic 35–104
[2021-06-26 04:14] LABS: Basophils # (auto) 0.1 10 ^3/uL (0-0.2); Basophils % (auto) 1.3 % (0.0-2.0); Eosinophils # (auto) 0.3 10 ^3/uL (0-0.8); Hematocrit 28.2 % (41.0-53.0); Hemoglobin 10.2 g/dL (13.5-17.5); Lymphocytes # (auto) 1.2 10 ^3/uL (0.4-5.4); Lymphocytes % (auto) 18.4 % (10.0-50.0); Mean Corpuscular Hgb Conc. 36.2 g/dL (32.0-36.0); Mean Corpuscular Volume 85.6 fL (80.0-100.0); Monocytes # (auto) 0.7 10 ^3/uL (0-1.3); Monocytes % (auto) 10.6 % (0.0-12.0); Neutrophils # (auto) 4.3 10 ^3/uL (1.6-8.6); Neutrophils % (auto) 65.7 % (37.0-80.0); Nucleated Red Blood Cells % 0.1 %; Red Blood Cells 3.29 10^6/uL (4.5-5.90); Red Cell Distribution Width 13.7 % (11.8-14.3); White Blood Cell 6.6 10^3/uL (4.4-10.8)
[2021-06-26 04:44] LABS: Albumin 2.4 g/dL (3.4-5.0); BUN/Creatinine Ratio 18.2; Calcium 7.8 mg/dL (8.5-10.1); Magnesium 2.2 mg/dL (1.6-2.6); Potassium 3.6 mmol/L (3.5-5.1)
[2021-06-26 04:46] LABS: Bilirubin, Total 0.3 mg/dL (0.2-1.0); Phosphorus 4.1 mg/dL (2.5-4.90); Total Protein 6.4 g/dL (6.4-8.2)
[2021-06-26] MEDS: ACETYLCYSTEINE 20%(200MG/ML) SOL 4ML NEB SCH ×3 (06:05→22:14)
[2021-06-26] MEDS: ALBUTEROL SULF 2.5 MG/0.5ML(0.5%) NEB SOLN NEB PRN ×3 (06:06→22:14)
[2021-06-26] MEDS: LORazepam 2MG/ML-1ML VIAL IV PRN (08:35)
[2021-06-26] MEDS: cefTRIAXone 1GM/50ML D5W 50 ML IV SCH (09:07)
[2021-06-26] MEDS: SODIUM CHLOR 0.9% PF (SALINE LOCK) 10ML VIAL/SYR IV SCH ×2 (10:00→23:30)
[2021-06-26] MEDS: EMTRICITABINE 200 MG PO SCH (10:00)
[2021-06-26] MEDS: VALPROATE INJ 500 MG in SODIUM CHL 0.9% 100 ML IV SCH ×2 (11:46→23:30)
[2021-06-26] MEDS: FAMOTIDINE (10MG/ML) 2ML VL IV SCH (11:48)
[2021-06-26] MEDS: OLANZapine 5 MG TAB PO SCH (11:49)
[2021-06-26] MEDS: ENOXAPARIN SOD 40 MG/0.4 ML SYRINGE SC SCH (11:49)
[2021-06-26] MEDS: FOLIC ACID 1 MG, MULTIPLE VITAMIN 10 ML, MAGNESIUM SULF SDV 50% 8 MEQ, THIAMINE INJ 100... INJ SCH ×5 (12:28)
[2021-06-26] MEDS: NOREPINEPHRINE 8 MG/250ML KIT 250 ML IV SCH (12:29)
[2021-06-26] MEDS: PROPOFOL 100 ML IV SCH ×2 (13:20→17:11)
[2021-06-26 13:52] LABS: Hepatitis B Surface Antibody Negative
[2021-06-26 14:11] LABS: Hepatitis A Total Antibody Negative
[2021-06-26 14:48] LABS: Hepatitis B Core Total AB Negative; Hepatitis B Surface Antigen Negative (Negative); Hepatitis C Antibody Negative (Negative)
[2021-06-26] MEDS: MIDAZOLAM DRIP 50 mg/50mL 50 ML IV SCH (15:02)
[2021-06-26] MEDS: D5W/SOD CHL 0.45% 1,000 ML IV SCH ×2 (17:18→23:00)
[2021-06-26] MEDS: fentaNYL Drip 2500mCg/250mlNS 250 ML IV SCH (18:45)
[2021-06-26] MEDS: PANTOPRAZOLE 40 MG/10 ML VIAL INJ IV SCH (23:30)
[2021-06-26] MEDS: traZODone HCL 50 MG TAB PO SCH (23:30)
[2021-06-27] VITALS (79 sets, daily range): BP systolic 85–165; BP diastolic 40–96
[2021-06-27] MEDS: ACETYLCYSTEINE 20%(200MG/ML) SOL 4ML NEB SCH ×2 (06:52→13:52)
[2021-06-27] MEDS: ALBUTEROL SULF 2.5 MG/0.5ML(0.5%) NEB SOLN NEB PRN ×2 (06:52→13:52)
[2021-06-27 07:55] LABS: Basophils # (auto) 0 10 ^3/uL (0-0.2); Basophils % (auto) 0.5 % (0.0-2.0); Eosinophils # (auto) 0.2 10 ^3/uL (0-0.8); Eosinophils % (auto) 2.8 % (0.0-7.0); Hematocrit 29.7 % (41.0-53.0); Hemoglobin 10.7 g/dL (13.5-17.5); Lymphocytes # (auto) 1.7 10 ^3/uL (0.4-5.4); Lymphocytes % (auto) 21.1 % (10.0-50.0); Mean Corpuscular Hemoglobin 31.1 pg (28.0-32.0); Mean Corpuscular Hgb Conc. 36.2 g/dL (32.0-36.0); Monocytes # (auto) 0.8 10 ^3/uL (0-1.3); Monocytes % (auto) 9.1 % (0.0-12.0); Neutrophils # (auto) 5.5 10 ^3/uL (1.6-8.6); Neutrophils % (auto) 66.5 % (37.0-80.0); Nucleated Red Blood Cells % 0.1 %; Red Blood Cells 3.45 10^6/uL (4.5-5.90); Red Cell Distribution Width 13.8 % (11.8-14.3); White Blood Cell 8.3 10^3/uL (4.4-10.8)
[2021-06-27 08:09] LABS: BUN/Creatinine Ratio 17.4; Calcium 8.1 mg/dL (8.5-10.1); Magnesium 2.3 mg/dL (1.6-2.6); Potassium 3.6 mmol/L (3.5-5.1)
[2021-06-27] MEDS: cefTRIAXone 1GM/50ML D5W 50 ML IV SCH (08:47)
[2021-06-27] MEDS: PROPOFOL 100 ML IV SCH ×3 (08:48→14:57)
[2021-06-27] MEDS: SODIUM CHLOR 0.9% PF (SALINE LOCK) 10ML VIAL/SYR IV SCH ×2 (10:00→22:00)
[2021-06-27] MEDS: ENOXAPARIN SOD 40 MG/0.4 ML SYRINGE SC SCH (10:00)
[2021-06-27] MEDS: EMTRICITABINE 200 MG PO SCH (10:00)
[2021-06-27] MEDS: OLANZapine 5 MG TAB PO SCH (10:02)
[2021-06-27] MEDS: PANTOPRAZOLE 40 MG/10 ML VIAL INJ IV SCH ×2 (10:02→22:00)
[2021-06-27] MEDS: VALPROATE INJ 500 MG in SODIUM CHL 0.9% 100 ML IV SCH ×2 (10:03→22:00)
[2021-06-27] MEDS ORDERED: POTASSIUM CHL 20MEQ/100ML 100 ML IV ONE (13:45)
[2021-06-27] MEDS: ACETAMINOPHEN 650 MG RECT SUPP PR PRN (15:34)
[2021-06-27] MEDS: MIDAZOLAM DRIP 50 mg/50mL 50 ML IV SCH (16:51)
[2021-06-27] MEDS: fentaNYL Drip 2500mCg/250mlNS 250 ML IV SCH (18:45)
[2021-06-27] MEDS: NOREPINEPHRINE 8 MG/250ML KIT 250 ML IV SCH (18:45)
[2021-06-27] MEDS: traZODone HCL 50 MG TAB PO SCH (22:00)
[2021-06-28] VITALS (67 sets, daily range): BP systolic 82–171; BP diastolic 39–93
[2021-06-28] MEDS: D5W/SOD CHL 0.45% 1,000 ML IV SCH ×2 (02:00→22:00)
[2021-06-28] MEDS: ACETAMINOPHEN 650 MG RECT SUPP PR PRN (04:50)
[2021-06-28] MEDS: PROPOFOL 100 ML IV SCH ×5 (07:07→21:51)
[2021-06-28] MEDS: MIDAZOLAM DRIP 50 mg/50mL 50 ML IV SCH ×5 (08:45→23:45)
[2021-06-28] MEDS: cefTRIAXone 1GM/50ML D5W 50 ML IV SCH (09:08)
[2021-06-28] MEDS: EMTRICITABINE 200 MG PO SCH (10:00)
[2021-06-28] MEDS: ENOXAPARIN SOD 40 MG/0.4 ML SYRINGE SC SCH (10:22)
[2021-06-28] MEDS: OLANZapine 5 MG TAB PO SCH (10:22)
[2021-06-28] MEDS: SODIUM CHLOR 0.9% PF (SALINE LOCK) 10ML VIAL/SYR IV SCH ×2 (10:22→22:00)
[2021-06-28] MEDS: PANTOPRAZOLE 40 MG/10 ML VIAL INJ IV SCH ×2 (10:22→22:00)
[2021-06-28] MEDS: VALPROATE INJ 500 MG in SODIUM CHL 0.9% 100 ML IV SCH ×2 (10:22→22:00)
[2021-06-28] MEDS: NOREPINEPHRINE 8 MG/250ML KIT 250 ML IV SCH (17:07)
[2021-06-28] MEDS: fentaNYL Drip 2500mCg/250mlNS 250 ML IV SCH (18:45)
[2021-06-28] MEDS: traZODone HCL 50 MG TAB PO SCH (22:00)
[2021-06-29] VITALS (92 sets, daily range): BP systolic 80–132; BP diastolic 41–78
[2021-06-29] MEDS: PROPOFOL 100 ML IV SCH ×7 (01:32→16:16)
[2021-06-29] MEDS: MIDAZOLAM DRIP 50 mg/50mL 50 ML IV SCH ×5 (04:45→18:00)
[2021-06-29 05:03] LABS: Hematocrit 33.1 % (41.0-53.0); Hemoglobin 11.6 g/dL (13.5-17.5); Mean Corpuscular Hemoglobin 30.4 pg (28.0-32.0); Mean Corpuscular Hgb Conc. 35.1 g/dL (32.0-36.0); Mean Corpuscular Volume 86.4 fL (80.0-100.0); Red Blood Cells 3.84 10^6/uL (4.5-5.90); Red Cell Distribution Width 14.3 % (11.8-14.3)
[2021-06-29 05:25] LABS: Albumin 2.8 g/dL (3.4-5.0); BUN/Creatinine Ratio 15.1; Calcium 8.7 mg/dL (8.5-10.1); Potassium 3.8 mmol/L (3.5-5.1)
[2021-06-29 05:33] LABS: Basophils % (manual) 0 (0.0-2.0); Bilirubin, Total 0.4 mg/dL (0.2-1.0); Blast Cells 0; Metamyelocytes % 0; Myelocytes % 0; Promyelocytes % 0; Reactive Lymphocytes 0; Total Protein 7.5 g/dL (6.4-8.2)
[2021-06-29] MEDS: cefTRIAXone 1GM/50ML D5W 50 ML IV SCH (09:37)
[2021-06-29] MEDS: OLANZapine 5 MG TAB PO SCH (09:37)
[2021-06-29] MEDS: PANTOPRAZOLE 40 MG/10 ML VIAL INJ IV SCH ×2 (09:37→22:13)
[2021-06-29] MEDS: SODIUM CHLOR 0.9% PF (SALINE LOCK) 10ML VIAL/SYR IV SCH ×2 (09:38→22:13)
[2021-06-29] MEDS: VALPROATE INJ 500 MG in SODIUM CHL 0.9% 100 ML IV SCH ×2 (09:38→22:12)
[2021-06-29] MEDS: EMTRICITABINE 200 MG PO SCH (09:38)
[2021-06-29 10:23] LABS: Band Neutrophils % (manual) 3; Eosinophils % (manual) 2 (0-7); Lymphocytes % (manual) 18 (10.0-50.0); Monocytes % (manual) 6 (0-12)
[2021-06-29] MEDS: ACETAMINOPHEN 650 MG RECT SUPP PR PRN (13:38)
[2021-06-29 15:39] LABS: Urine Bacteria FEW /hpf (None Seen); Urine Blood 1+ /uL (Negative); Urine Specific Gravity 1.015 (1.001-1.035); Urine WBC 2 /hpf (0 - 3)
[2021-06-29] MEDS: D5W/SOD CHL 0.45% 1,000 ML IV SCH (18:00)
[2021-06-29] MEDS: NOREPINEPHRINE 8 MG/250ML KIT 250 ML IV SCH (18:45)
[2021-06-29] MEDS: fentaNYL Drip 2500mCg/250mlNS 250 ML IV SCH (18:45)
[2021-06-29] MEDS: traZODone HCL 50 MG TAB PO SCH (22:13)
[2021-06-29] MEDS ORDERED: fentaNYL Drip 2500mCg/250mlNS 250 ML IV ONE (22:17)
[2021-06-30] VITALS (82 sets, daily range): BP systolic 93–177; BP diastolic 39–99
[2021-06-30 04:34] LABS: Hematocrit 32.8 % (41.0-53.0); Hemoglobin 11.5 g/dL (13.5-17.5); Mean Corpuscular Hemoglobin 30.3 pg (28.0-32.0); Mean Corpuscular Volume 86.4 fL (80.0-100.0); Red Cell Distribution Width 14.1 % (11.8-14.3); White Blood Cell 11.9 10^3/uL (4.4-10.8)
[2021-06-30 05:09] LABS: Basophils % (manual) 0 (0.0-2.0); Blast Cells 0; Metamyelocytes % 0; Myelocytes % 0; Promyelocytes % 0; Reactive Lymphocytes 0
[2021-06-30 05:10] LABS: Albumin 2.5 g/dL (3.4-5.0); Calcium 8.8 mg/dL (8.5-10.1); Magnesium 2.2 mg/dL (1.6-2.6); Potassium 3.8 mmol/L (3.5-5.1)
[2021-06-30 05:14] LABS: BUN/Creatinine Ratio 12.1; Bilirubin, Total 0.4 mg/dL (0.2-1.0); Total Protein 7.7 g/dL (6.4-8.2)
[2021-06-30] MEDS: MIDAZOLAM DRIP 50 mg/50mL 50 ML IV SCH ×5 (05:45→20:19)
[2021-06-30 06:59] LABS: Band Neutrophils % (manual) 11; Eosinophils % (manual) 4 (0-7); Lymphocytes % (manual) 23 (10.0-50.0); Monocytes % (manual) 9 (0-12)
[2021-06-30] MEDS: PROPOFOL 100 ML IV SCH ×8 (07:00→23:04)
[2021-06-30] MEDS: EMTRICITABINE 200 MG PO SCH (09:51)
[2021-06-30] MEDS: PANTOPRAZOLE 40 MG/10 ML VIAL INJ IV SCH ×2 (10:15→22:02)
[2021-06-30] MEDS: OLANZapine 5 MG TAB PO SCH (10:15)
[2021-06-30] MEDS: SODIUM CHLOR 0.9% PF (SALINE LOCK) 10ML VIAL/SYR IV SCH ×2 (10:16→22:03)
[2021-06-30] MEDS: cefTRIAXone 1GM/50ML D5W 50 ML IV SCH (10:16)
[2021-06-30] MEDS: VALPROATE INJ 500 MG in SODIUM CHL 0.9% 100 ML IV SCH ×2 (10:23→22:02)
[2021-06-30] MEDS: fentaNYL Drip 2500mCg/250mlNS 250 ML IV SCH (12:10)
[2021-06-30] MEDS: D5W/SOD CHL 0.45% 1,000 ML IV SCH (14:00)
[2021-06-30] MEDS: NOREPINEPHRINE 8 MG/250ML KIT 250 ML IV SCH (18:45)
[2021-06-30] MEDS: traZODone HCL 50 MG TAB PO SCH (22:00)
[2021-07-01] VITALS (106 sets, daily range): BP systolic 90–186; BP diastolic 49–86
[2021-07-01] MEDS: fentaNYL Drip 2500mCg/250mlNS 250 ML IV SCH (00:58)
[2021-07-01] MEDS: MIDAZOLAM DRIP 50 mg/50mL 50 ML IV SCH ×4 (01:33→20:43)
[2021-07-01] MEDS: PROPOFOL 100 ML IV SCH ×6 (02:06→20:41)
[2021-07-01 04:37] LABS: Basophils # (auto) 0.1 10 ^3/uL (0-0.2); Basophils % (auto) 0.4 % (0.0-2.0); Eosinophils # (auto) 0.1 10 ^3/uL (0-0.8); Eosinophils % (auto) 0.8 % (0.0-7.0); Hematocrit 32.2 % (41.0-53.0); Hemoglobin 11.1 g/dL (13.5-17.5); Lymphocytes # (auto) 1.6 10 ^3/uL (0.4-5.4); Lymphocytes % (auto) 11.5 % (10.0-50.0); Mean Corpuscular Hgb Conc. 34.4 g/dL (32.0-36.0); Mean Corpuscular Volume 87.1 fL (80.0-100.0); Monocytes # (auto) 0.9 10 ^3/uL (0-1.3); Monocytes % (auto) 6.8 % (0.0-12.0); Neutrophils % (auto) 80.5 % (37.0-80.0); Red Cell Distribution Width 13.8 % (11.8-14.3); White Blood Cell 13.7 10^3/uL (4.4-10.8)
[2021-07-01 05:02] LABS: Albumin 2.3 g/dL (3.4-5.0); BUN/Creatinine Ratio 18.6; Calcium 8.6 mg/dL (8.5-10.1); Magnesium 1.9 mg/dL (1.6-2.6); Potassium 4.9 mmol/L (3.5-5.1)
[2021-07-01 05:05] LABS: Bilirubin, Total 0.3 mg/dL (0.2-1.0); Total Protein 7.4 g/dL (6.4-8.2)
[2021-07-01] MEDS: cefTRIAXone 1GM/50ML D5W 50 ML IV SCH (09:59)
[2021-07-01] MEDS: EMTRICITABINE 200 MG PO SCH (10:00)
[2021-07-01] MEDS: SODIUM CHLOR 0.9% PF (SALINE LOCK) 10ML VIAL/SYR IV SCH ×2 (10:00→22:00)
[2021-07-01] MEDS: OLANZapine 5 MG TAB PO SCH (10:00)
[2021-07-01] MEDS: PANTOPRAZOLE 40 MG/10 ML VIAL INJ IV SCH ×2 (10:00→21:46)
[2021-07-01] MEDS: D5W/SOD CHL 0.45% 1,000 ML IV SCH (10:00)
[2021-07-01] MEDS: VALPROATE INJ 500 MG in SODIUM CHL 0.9% 100 ML IV SCH ×2 (12:39→21:47)
[2021-07-01] MEDS: ACETAMINOPHEN 650 MG RECT SUPP PR PRN (15:57)
[2021-07-01] MEDS: NOREPINEPHRINE 8 MG/250ML KIT 250 ML IV SCH (18:45)
[2021-07-01] MEDS: traZODone HCL 50 MG TAB PO SCH (22:00)
[2021-07-02] VITALS (102 sets, daily range): BP systolic 81–133; BP diastolic 40–77
[2021-07-02] MEDS: PROPOFOL 100 ML IV SCH ×5 (00:43→23:09)
[2021-07-02] MEDS: fentaNYL Drip 2500mCg/250mlNS 250 ML IV SCH (01:08)
[2021-07-02] MEDS: MIDAZOLAM DRIP 50 mg/50mL 50 ML IV SCH ×5 (01:09→22:45)
[2021-07-02 04:30] LABS: Basophils # (auto) 0 10 ^3/uL (0-0.2); Basophils % (auto) 0.2 % (0.0-2.0); Eosinophils # (auto) 0.1 10 ^3/uL (0-0.8); Hemoglobin 11.5 g/dL (13.5-17.5)
[2021-07-02 04:34] LABS: Hematocrit 32.6 % (41.0-53.0); Lymphocytes # (auto) 2.1 10 ^3/uL (0.4-5.4); Lymphocytes % (auto) 13.9 % (10.0-50.0); Mean Corpuscular Hemoglobin 30.2 pg (28.0-32.0); Mean Corpuscular Hgb Conc. 35.1 g/dL (32.0-36.0); Mean Corpuscular Volume 85.9 fL (80.0-100.0); Monocytes # (auto) 1.2 10 ^3/uL (0-1.3); Monocytes % (auto) 8.3 % (0.0-12.0); Neutrophils # (auto) 11.4 10 ^3/uL (1.6-8.6); Neutrophils % (auto) 76.6 % (37.0-80.0); Red Cell Distribution Width 14.1 % (11.8-14.3); White Blood Cell 14.9 10^3/uL (4.4-10.8)
[2021-07-02 04:41] LABS: Potassium 4.2 mmol/L (3.5-5.1)
[2021-07-02 04:47] LABS: Albumin 2.5 g/dL (3.4-5.0); BUN/Creatinine Ratio 14.5; Bilirubin, Total 0.5 mg/dL (0.2-1.0)
[2021-07-02] MEDS: cefTRIAXone 1GM/50ML D5W 50 ML IV SCH (08:49)
[2021-07-02] MEDS: D5W/SOD CHL 0.45% 1,000 ML IV SCH (08:49)
[2021-07-02] MEDS: EMTRICITABINE 200 MG PO SCH (10:00)
[2021-07-02] MEDS: VALPROATE INJ 500 MG in SODIUM CHL 0.9% 100 ML IV SCH ×2 (10:14→20:40)
[2021-07-02] MEDS: OLANZapine 5 MG TAB PO SCH (10:14)
[2021-07-02] MEDS: PANTOPRAZOLE 40 MG/10 ML VIAL INJ IV SCH ×2 (10:14→20:39)
[2021-07-02] MEDS: SODIUM CHLOR 0.9% PF (SALINE LOCK) 10ML VIAL/SYR IV SCH ×2 (10:14→20:39)
[2021-07-02] MEDS: NOREPINEPHRINE 8 MG/250ML KIT 250 ML IV SCH (18:45)
[2021-07-02] MEDS ORDERED: [UNRECOGNIZED DRUG - CODE] PO (19:07)
[2021-07-02] MEDS: traZODone HCL 50 MG TAB PO SCH (20:39)
[2021-07-02] MEDS: ACETAMINOPHEN 650 MG RECT SUPP PR PRN (23:56)
[2021-07-03] VITALS (104 sets, daily range): BP systolic 85–151; BP diastolic 37–94
[2021-07-03] MEDS: PROPOFOL 100 ML IV SCH ×9 (01:18→18:15)
[2021-07-03] MEDS: MIDAZOLAM DRIP 50 mg/50mL 50 ML IV SCH ×6 (01:42→18:15)
[2021-07-03 04:42] LABS: Basophils # (auto) 0.1 10 ^3/uL (0-0.2); Basophils % (auto) 0.6 % (0.0-2.0); Eosinophils # (auto) 0.1 10 ^3/uL (0-0.8); Eosinophils % (auto) 0.5 % (0.0-7.0); Hemoglobin 10.5 g/dL (13.5-17.5); Lymphocytes # (auto) 0.7 10 ^3/uL (0.4-5.4); Lymphocytes % (auto) 6.1 % (10.0-50.0); Mean Corpuscular Volume 86.2 fL (80.0-100.0); Monocytes % (auto) 8.5 % (0.0-12.0); Neutrophils # (auto) 9.7 10 ^3/uL (1.6-8.6); Neutrophils % (auto) 84.3 % (37.0-80.0); Nucleated Red Blood Cells % 0.1 %; Red Blood Cells 3.37 10^6/uL (4.5-5.90); Red Cell Distribution Width 13.8 % (11.8-14.3); White Blood Cell 11.5 10^3/uL (4.4-10.8)
[2021-07-03 05:14] LABS: Albumin 2.3 g/dL (3.4-5.0); BUN/Creatinine Ratio 16.3; Bilirubin, Total 0.5 mg/dL (0.2-1.0); Calcium 8.5 mg/dL (8.5-10.1); Magnesium 1.9 mg/dL (1.6-2.6); Total Protein 7.3 g/dL (6.4-8.2)
[2021-07-03] MEDS: D5W/SOD CHL 0.45% 1,000 ML IV SCH (05:31)
[2021-07-03] MEDS: fentaNYL Drip 2500mCg/250mlNS 250 ML IV SCH ×2 (05:36→23:38)
[2021-07-03] MEDS: cefTRIAXone 1GM/50ML D5W 50 ML IV SCH (09:14)
[2021-07-03] MEDS: EMTRICITABINE 200 MG PO SCH (09:25)
[2021-07-03] MEDS: PANTOPRAZOLE 40 MG/10 ML VIAL INJ IV SCH ×2 (09:31→21:09)
[2021-07-03] MEDS: VALPROATE INJ 500 MG in SODIUM CHL 0.9% 100 ML IV SCH ×2 (09:31→21:08)
[2021-07-03] MEDS: SODIUM CHLOR 0.9% PF (SALINE LOCK) 10ML VIAL/SYR IV SCH ×2 (09:31→21:09)
[2021-07-03] MEDS: OLANZapine 5 MG TAB PO SCH (09:31)
[2021-07-03] MEDS: PENICILLIN G BENZ 1200000 UNITS/2 ML SYRG IM SCH (17:33)
[2021-07-03] MEDS: ALBUTEROL SULF 2.5 MG/0.5ML(0.5%) NEB SOLN NEB PRN (18:08)
[2021-07-03] MEDS: NOREPINEPHRINE 8 MG/250ML KIT 250 ML IV SCH (18:39)
[2021-07-03] MEDS: traZODone HCL 50 MG TAB PO SCH (21:09)
[2021-07-03] MEDS: clonazePAM 0.5 MG TAB PO SCH (21:09)
[2021-07-03] MEDS: QUEtiapine FUMARATE 25 MG TAB PO SCH (21:10)
[2021-07-04] VITALS (94 sets, daily range): BP systolic 91–169; BP diastolic 36–99
[2021-07-04] MEDS: D5W/SOD CHL 0.45% 1,000 ML IV SCH ×2 (00:36→18:50)
[2021-07-04] MEDS: MIDAZOLAM DRIP 50 mg/50mL 50 ML IV SCH ×2 (00:37→21:03)
[2021-07-04] MEDS: PROPOFOL 100 ML IV SCH ×8 (01:27→23:39)
[2021-07-04 04:20] LABS: Basophils # (auto) 0 10 ^3/uL (0-0.2); Basophils % (auto) 0.2 % (0.0-2.0); Eosinophils # (auto) 0.2 10 ^3/uL (0-0.8); Eosinophils % (auto) 2.7 % (0.0-7.0); Hematocrit 29.4 % (41.0-53.0); Hemoglobin 10.4 g/dL (13.5-17.5); Lymphocytes # (auto) 1.4 10 ^3/uL (0.4-5.4); Lymphocytes % (auto) 17.9 % (10.0-50.0); Mean Corpuscular Hemoglobin 30.5 pg (28.0-32.0); Mean Corpuscular Hgb Conc. 35.5 g/dL (32.0-36.0); Mean Corpuscular Volume 86.1 fL (80.0-100.0); Monocytes # (auto) 0.8 10 ^3/uL (0-1.3); Monocytes % (auto) 10.5 % (0.0-12.0); Neutrophils # (auto) 5.2 10 ^3/uL (1.6-8.6); Neutrophils % (auto) 68.7 % (37.0-80.0); Red Blood Cells 3.42 10^6/uL (4.5-5.90); Red Cell Distribution Width 13.9 % (11.8-14.3); White Blood Cell 7.6 10^3/uL (4.4-10.8)
[2021-07-04 04:47] LABS: Albumin 2.2 g/dL (3.4-5.0); Calcium 8.4 mg/dL (8.5-10.1); Magnesium 1.9 mg/dL (1.6-2.6); Potassium 3.6 mmol/L (3.5-5.1)
[2021-07-04 04:53] LABS: BUN/Creatinine Ratio 17.5; Bilirubin, Total 0.4 mg/dL (0.2-1.0); Total Protein 6.9 g/dL (6.4-8.2)
[2021-07-04] MEDS: VALPROATE INJ 500 MG in SODIUM CHL 0.9% 100 ML IV SCH ×2 (09:42→20:54)
[2021-07-04] MEDS: PANTOPRAZOLE 40 MG/10 ML VIAL INJ IV SCH ×2 (09:42→21:17)
[2021-07-04] MEDS: clonazePAM 0.5 MG TAB PO SCH ×2 (09:43→21:18)
[2021-07-04] MEDS: OLANZapine 5 MG TAB PO SCH (09:43)
[2021-07-04] MEDS: EMTRICITABINE 200 MG PO SCH ×2 (09:43→10:00)
[2021-07-04] MEDS: QUEtiapine FUMARATE 25 MG TAB PO SCH ×2 (09:43→21:18)
[2021-07-04] MEDS: SODIUM CHLOR 0.9% PF (SALINE LOCK) 10ML VIAL/SYR IV SCH ×2 (09:45→20:55)
[2021-07-04] MEDS ORDERED: ALBUTEROL SULF 2.5 MG/0.5ML(0.5%) NEB SOLN NEB PRN (14:45)
[2021-07-04] MEDS: LORazepam 2MG/ML-1ML VIAL IV PRN (15:53)
[2021-07-04] MEDS ORDERED: LEVALBUTEROL HCL 1.25 MG/3 ML NEB NEB STA (16:17)
[2021-07-04] MEDS: ACETYLCYSTEINE 10 %(100MG/ML) SOL 4ML NEB PRN ×2 (16:44→18:35)
[2021-07-04] MEDS ORDERED: METOPROLOL TARTRATE 1MG/1ML-5ML VIAL IV PRN (16:45)
[2021-07-04] MEDS ORDERED: MORPHINE SULFATE 4 MG/ML SYR/VIAL IV PRN (16:45)
[2021-07-04] MEDS: NOREPINEPHRINE 8 MG/250ML KIT 250 ML IV SCH (18:45)
[2021-07-04] MEDS: traZODone HCL 50 MG TAB PO SCH (21:18)
[2021-07-05] VITALS (88 sets, daily range): BP systolic 101–165; BP diastolic 60–105
[2021-07-05] MEDS: ACETAMINOPHEN 650 MG RECT SUPP PR PRN (00:36)
[2021-07-05 04:16] LABS: Basophils # (auto) 0.1 10 ^3/uL (0-0.2); Eosinophils # (auto) 0 10 ^3/uL (0-0.8); Mean Corpuscular Hgb Conc. 34.8 g/dL (32.0-36.0)
[2021-07-05 04:20] LABS: Basophils % (auto) 0.5 % (0.0-2.0); Eosinophils % (auto) 0.3 % (0.0-7.0); Hematocrit 30.4 % (41.0-53.0); Hemoglobin 10.6 g/dL (13.5-17.5); Lymphocytes # (auto) 0.9 10 ^3/uL (0.4-5.4); Lymphocytes % (auto) 8.8 % (10.0-50.0); Mean Corpuscular Volume 86.1 fL (80.0-100.0); Monocytes # (auto) 0.7 10 ^3/uL (0-1.3); Monocytes % (auto) 7.4 % (0.0-12.0); Neutrophils # (auto) 8.3 10 ^3/uL (1.6-8.6); Nucleated Red Blood Cells % 0.1 %; Red Blood Cells 3.53 10^6/uL (4.5-5.90); Red Cell Distribution Width 13.8 % (11.8-14.3)
[2021-07-05 04:35] LABS: Albumin 2.5 g/dL (3.4-5.0); BUN/Creatinine Ratio 19.5; Calcium 8.5 mg/dL (8.5-10.1); Magnesium 2.1 mg/dL (1.6-2.6); Potassium 3.4 mmol/L (3.5-5.1)
[2021-07-05 04:37] LABS: Bilirubin, Total 0.5 mg/dL (0.2-1.0); Total Protein 7.3 g/dL (6.4-8.2)
[2021-07-05] MEDS: LORazepam 2MG/ML-1ML VIAL IV PRN (05:26)
[2021-07-05] MEDS: LEVALBUTEROL HCL 1.25 MG/3 ML NEB NEB SCH ×3 (07:44→21:27)
[2021-07-05] MEDS: ACETYLCYSTEINE 10 %(100MG/ML) SOL 4ML NEB SCH ×3 (07:44→21:27)
[2021-07-05] MEDS: VALPROATE INJ 500 MG in SODIUM CHL 0.9% 100 ML IV SCH ×3 (10:00→22:00)
[2021-07-05] MEDS: SODIUM CHLOR 0.9% PF (SALINE LOCK) 10ML VIAL/SYR IV SCH ×2 (10:00→22:00)
[2021-07-05] MEDS: clonazePAM 0.5 MG TAB PO SCH ×2 (10:00→22:00)
[2021-07-05] MEDS: OLANZapine 5 MG TAB PO SCH (10:00)
[2021-07-05] MEDS: QUEtiapine FUMARATE 25 MG TAB PO SCH ×2 (10:00→22:00)
[2021-07-05] MEDS: PANTOPRAZOLE 40 MG/10 ML VIAL INJ IV SCH ×2 (10:00→22:00)
[2021-07-05] MEDS: EMTRICITABINE 200 MG PO SCH (10:00)
[2021-07-05] MEDS ORDERED: POTASSIUM CHL 20MEQ/100ML 100 ML IV ONE (12:00)
[2021-07-05] MEDS: traZODone HCL 50 MG TAB PO SCH (22:00)
[2021-07-06] MEDS: LEVALBUTEROL HCL 1.25 MG/3 ML NEB NEB SCH ×4 (01:33→19:23)
[2021-07-06] MEDS: ACETYLCYSTEINE 10 %(100MG/ML) SOL 4ML NEB SCH ×4 (01:33→19:23)
[2021-07-06 05:00] VITALS: BP 131/78
[2021-07-06 06:30] LABS: Albumin 2.5 g/dL (3.4-5.0); BUN/Creatinine Ratio 21.8; Basophils # (auto) 0 10 ^3/uL (0-0.2); Calcium 8.7 mg/dL (8.5-10.1); Eosinophils # (auto) 0.1 10 ^3/uL (0-0.8); Hemoglobin 10.2 g/dL (13.5-17.5); Magnesium 2.1 mg/dL (1.6-2.6); Monocytes # (auto) 0.9 10 ^3/uL (0-1.3); Monocytes % (auto) 9.1 % (0.0-12.0)
[2021-07-06 06:31] LABS: Basophils % (auto) 0.3 % (0.0-2.0); Hematocrit 28.4 % (41.0-53.0); Lymphocytes # (auto) 1.4 10 ^3/uL (0.4-5.4); Lymphocytes % (auto) 14.8 % (10.0-50.0); Mean Corpuscular Hemoglobin 30.7 pg (28.0-32.0); Mean Corpuscular Volume 85.5 fL (80.0-100.0); Neutrophils # (auto) 7.3 10 ^3/uL (1.6-8.6); Neutrophils % (auto) 74.8 % (37.0-80.0); Red Blood Cells 3.32 10^6/uL (4.5-5.90); Red Cell Distribution Width 13.8 % (11.8-14.3); White Blood Cell 9.7 10^3/uL (4.4-10.8)
[2021-07-06 06:33] LABS: Bilirubin, Total 0.6 mg/dL (0.2-1.0); Total Protein 7.1 g/dL (6.4-8.2)
[2021-07-06 08:53] VITALS: BP 119/69
[2021-07-06] MEDS: PANTOPRAZOLE 40 MG/10 ML VIAL INJ IV SCH ×2 (09:24→22:07)
[2021-07-06] MEDS: VALPROATE INJ 500 MG in SODIUM CHL 0.9% 100 ML IV SCH ×2 (09:24→22:08)
[2021-07-06] MEDS: clonazePAM 0.5 MG TAB PO SCH ×2 (09:25→22:09)
[2021-07-06] MEDS: QUEtiapine FUMARATE 25 MG TAB PO SCH ×2 (09:25→22:09)
[2021-07-06] MEDS: SODIUM CHLOR 0.9% PF (SALINE LOCK) 10ML VIAL/SYR IV SCH ×2 (09:25→22:08)
[2021-07-06] MEDS: OLANZapine 5 MG TAB PO SCH (09:25)
[2021-07-06] MEDS: EMTRICITABINE 200 MG PO SCH (10:00)
[2021-07-06 13:00] VITALS: BP 124/64
[2021-07-06 16:57] VITALS: BP 138/77
[2021-07-06] MEDS: traZODone HCL 50 MG TAB PO SCH (22:09)
[2021-07-06 22:25] VITALS: BP 126/100
[2021-07-07] MEDS: ACETYLCYSTEINE 10 %(100MG/ML) SOL 4ML NEB SCH ×4 (00:37→19:28)
[2021-07-07] MEDS: LEVALBUTEROL HCL 1.25 MG/3 ML NEB NEB SCH ×4 (00:37→19:28)
[2021-07-07 05:11] VITALS: BP 115/70
[2021-07-07 09:00] VITALS: BP 124/71
[2021-07-07] MEDS: SODIUM CHLOR 0.9% PF (SALINE LOCK) 10ML VIAL/SYR IV SCH ×2 (10:00→21:49)
[2021-07-07] MEDS: VALPROATE INJ 500 MG in SODIUM CHL 0.9% 100 ML IV SCH ×2 (10:45→21:48)
[2021-07-07] MEDS: PANTOPRAZOLE 40 MG/10 ML VIAL INJ IV SCH ×2 (10:45→21:48)
[2021-07-07] MEDS: EMTRICITABINE 200 MG PO SCH (10:46)
[2021-07-07] MEDS: QUEtiapine FUMARATE 25 MG TAB PO SCH ×2 (10:46→21:48)
[2021-07-07] MEDS: clonazePAM 0.5 MG TAB PO SCH ×2 (10:46→21:49)
[2021-07-07] MEDS: OLANZapine 5 MG TAB PO SCH (10:46)
[2021-07-07 13:00] VITALS: BP 133/79
[2021-07-07 16:58] VITALS: BP 118/79
[2021-07-07 21:32] VITALS: BP 91/80
[2021-07-07] MEDS: traZODone HCL 50 MG TAB PO SCH (21:48)
[2021-07-07 22:00] VITALS: BP 140/73
[2021-07-08] MEDS: ACETYLCYSTEINE 10 %(100MG/ML) SOL 4ML NEB SCH ×4 (00:45→18:27)
[2021-07-08] MEDS: LEVALBUTEROL HCL 1.25 MG/3 ML NEB NEB SCH ×4 (00:45→18:27)
[2021-07-08 05:00] VITALS: BP 122/86
[2021-07-08 09:00] VITALS: BP_SYST 116; BP_SYST 130; BP_DIAS 63; BP_DIAS 77
[2021-07-08] MEDS: EMTRICITABINE 200 MG PO SCH (10:00)
[2021-07-08] MEDS: SODIUM CHLOR 0.9% PF (SALINE LOCK) 10ML VIAL/SYR IV SCH ×2 (10:00→22:28)
[2021-07-08] MEDS: PANTOPRAZOLE 40 MG/10 ML VIAL INJ IV SCH ×2 (10:58→22:28)
[2021-07-08] MEDS: VALPROATE INJ 500 MG in SODIUM CHL 0.9% 100 ML IV SCH ×2 (10:58→22:28)
[2021-07-08] MEDS: QUEtiapine FUMARATE 25 MG TAB PO SCH ×2 (10:59→22:29)
[2021-07-08] MEDS: OLANZapine 5 MG TAB PO SCH (10:59)
[2021-07-08] MEDS: clonazePAM 0.5 MG TAB PO SCH ×2 (10:59→22:29)
[2021-07-08 13:00] VITALS: BP_SYST 111; BP_SYST 124; BP_DIAS 67; BP_DIAS 72
[2021-07-08 17:00] VITALS: BP 133/78
[2021-07-08] MEDS: traZODone HCL 50 MG TAB PO SCH (22:29)
[2021-07-09] MEDS: LEVALBUTEROL HCL 1.25 MG/3 ML NEB NEB SCH ×4 (00:40→18:21)
[2021-07-09] MEDS: ACETYLCYSTEINE 10 %(100MG/ML) SOL 4ML NEB SCH ×4 (00:40→18:21)
[2021-07-09 05:00] VITALS: BP 116/65
[2021-07-09] MEDS: PANTOPRAZOLE 40 MG/10 ML VIAL INJ IV SCH ×2 (08:11→22:00)
[2021-07-09] MEDS: SODIUM CHLOR 0.9% PF (SALINE LOCK) 10ML VIAL/SYR IV SCH ×2 (08:11→22:00)
[2021-07-09] MEDS: EMTRICITABINE 200 MG PO SCH (08:12)
[2021-07-09] MEDS: clonazePAM 0.5 MG TAB PO SCH ×2 (08:12→22:00)
[2021-07-09] MEDS: OLANZapine 5 MG TAB PO SCH (08:13)
[2021-07-09] MEDS: QUEtiapine FUMARATE 25 MG TAB PO SCH ×2 (08:13→22:00)
[2021-07-09] MEDS: VALPROATE INJ 500 MG in SODIUM CHL 0.9% 100 ML IV SCH ×2 (08:16→22:00)
[2021-07-09 09:00] VITALS: BP 116/71
[2021-07-09 12:55] VITALS: BP 112/77
[2021-07-09 17:00] VITALS: BP 127/84
[2021-07-09 22:00] VITALS: BP 137/88
[2021-07-09] MEDS: traZODone HCL 50 MG TAB PO SCH (22:00)
[2021-07-09] MEDS ORDERED: NALOXONE HCL 0.4 MG/ML VIAL ONE (23:25)
[2021-07-10 05:00] VITALS: BP 132/87
[2021-07-10] MEDS: ACETYLCYSTEINE 10 %(100MG/ML) SOL 4ML NEB SCH ×5 (06:44→20:19)
[2021-07-10] MEDS: LEVALBUTEROL HCL 1.25 MG/3 ML NEB NEB SCH ×5 (06:44→20:19)
[2021-07-10] MEDS: EMTRICITABINE 200 MG PO SCH (07:40)
[2021-07-10] MEDS: SODIUM CHLOR 0.9% PF (SALINE LOCK) 10ML VIAL/SYR IV SCH ×2 (07:40→22:00)
[2021-07-10] MEDS: VALPROATE INJ 500 MG in SODIUM CHL 0.9% 100 ML IV SCH ×2 (07:40→22:00)
[2021-07-10] MEDS: PANTOPRAZOLE 40 MG/10 ML VIAL INJ IV SCH ×2 (07:40→22:00)
[2021-07-10] MEDS: clonazePAM 0.5 MG TAB PO SCH ×2 (07:41→22:00)
[2021-07-10] MEDS: QUEtiapine FUMARATE 25 MG TAB PO SCH ×2 (07:41→22:00)
[2021-07-10] MEDS: OLANZapine 5 MG TAB PO SCH (07:42)
[2021-07-10] MEDS: PENICILLIN G BENZ 1200000 UNITS/2 ML SYRG IM SCH (18:30)
[2021-07-10 21:31] VITALS: BP 132/87
[2021-07-10 22:00] VITALS: BP 107/34
[2021-07-10] MEDS: traZODone HCL 50 MG TAB PO SCH (22:00)
[2021-07-11 05:00] VITALS: BP 99/57
[2021-07-11] MEDS: ACETYLCYSTEINE 10 %(100MG/ML) SOL 4ML NEB SCH ×3 (06:21→19:38)
[2021-07-11] MEDS: LEVALBUTEROL HCL 1.25 MG/3 ML NEB NEB SCH ×3 (06:22→19:39)
[2021-07-11] MEDS: VALPROATE INJ 500 MG in SODIUM CHL 0.9% 100 ML IV SCH ×2 (07:28→20:14)
[2021-07-11] MEDS: SODIUM CHLOR 0.9% PF (SALINE LOCK) 10ML VIAL/SYR IV SCH ×2 (07:28→20:15)
[2021-07-11] MEDS: EMTRICITABINE 200 MG PO SCH (07:28)
[2021-07-11] MEDS: PANTOPRAZOLE 40 MG/10 ML VIAL INJ IV SCH ×2 (07:28→20:14)
[2021-07-11] MEDS: QUEtiapine FUMARATE 25 MG TAB PO SCH ×2 (07:29→20:18)
[2021-07-11] MEDS: clonazePAM 0.5 MG TAB PO SCH ×2 (07:29→20:18)
[2021-07-11] MEDS: OLANZapine 5 MG TAB PO SCH (07:30)
[2021-07-11 15:00] VITALS: BP 123/71
[2021-07-11 17:51] VITALS: BP 128/89
[2021-07-11] MEDS: traZODone HCL 50 MG TAB PO SCH (20:18)
[2021-07-11 22:00] VITALS: BP 118/73
[2021-07-11] MEDS: LORazepam 0.5 MG TAB PO PRN (22:44)
[2021-07-12] MEDS: ACETYLCYSTEINE 10 %(100MG/ML) SOL 4ML NEB SCH ×4 (00:11→18:00)
[2021-07-12] MEDS: LEVALBUTEROL HCL 1.25 MG/3 ML NEB NEB SCH ×4 (00:11→18:00)
[2021-07-12 09:00] VITALS: BP 125/74
[2021-07-12] MEDS: EMTRICITABINE 200 MG PO SCH (10:00)
[2021-07-12] MEDS: PANTOPRAZOLE 40 MG/10 ML VIAL INJ IV SCH (10:00)
[2021-07-12] MEDS: SODIUM CHLOR 0.9% PF (SALINE LOCK) 10ML VIAL/SYR IV SCH ×2 (12:48→21:07)
[2021-07-12] MEDS: OLANZapine 5 MG TAB PO SCH (12:49)
[2021-07-12] MEDS: QUEtiapine FUMARATE 25 MG TAB PO SCH ×2 (12:49→21:08)
[2021-07-12] MEDS: clonazePAM 0.5 MG TAB PO SCH ×2 (12:49→21:08)
[2021-07-12 13:00] VITALS: BP 144/76
[2021-07-12 17:00] VITALS: BP 106/69
[2021-07-12] MEDS: PANTOPRAZOLE 40 MG TAB PO SCH (21:08)
[2021-07-12] MEDS: traZODone HCL 50 MG TAB PO SCH (21:08)
[2021-07-12] MEDS: LORazepam 0.5 MG TAB PO PRN (22:10)
[2021-07-13] MEDS: LEVALBUTEROL HCL 1.25 MG/3 ML NEB NEB SCH
[2021-07-13] MEDS: ACETYLCYSTEINE 10 %(100MG/ML) SOL 4ML NEB SCH
[2021-07-13] MEDS ORDERED: ACETYLCYSTEINE 10 %(100MG/ML) SOL 4ML NEB PRN (00:15)
[2021-07-13] MEDS ORDERED: LEVALBUTEROL HCL 1.25 MG/3 ML NEB NEB PRN (00:15)
[2021-07-13 06:18] VITALS: BP 109/67
[2021-07-13] MEDS: SODIUM CHLOR 0.9% PF (SALINE LOCK) 10ML VIAL/SYR IV SCH ×2 (08:35→22:00)
[2021-07-13] MEDS: QUEtiapine FUMARATE 25 MG TAB PO SCH ×2 (08:35→21:30)
[2021-07-13] MEDS: clonazePAM 0.5 MG TAB PO SCH ×2 (08:36→21:29)
[2021-07-13] MEDS: PANTOPRAZOLE 40 MG TAB PO SCH ×2 (08:36→21:30)
[2021-07-13] MEDS: OLANZapine 5 MG TAB PO SCH (08:36)
[2021-07-13 08:47] VITALS: BP 112/70
[2021-07-13] MEDS: EMTRICITABINE 200 MG PO SCH (09:00)
[2021-07-13 09:07] VITALS: BP 112/70
[2021-07-13] MEDS: LORazepam 0.5 MG TAB PO PRN ×2 (11:06→23:02)
[2021-07-13 13:00] VITALS: BP 117/69
[2021-07-13 13:35] LABS: Basophils # (auto) 0.1 10 ^3/uL (0-0.2); Hematocrit 36.9 % (41.0-53.0); Lymphocytes # (auto) 3.1 10 ^3/uL (0.4-5.4); Monocytes # (auto) 0.9 10 ^3/uL (0-1.3); White Blood Cell 11.3 10^3/uL (4.4-10.8)
[2021-07-13 13:37] LABS: Basophils % (auto) 0.7 % (0.0-2.0); Eosinophils # (auto) 0.4 10 ^3/uL (0-0.8); Hemoglobin 12.5 g/dL (13.5-17.5); Lymphocytes % (auto) 26.9 % (10.0-50.0); Mean Corpuscular Hemoglobin 29.5 pg (28.0-32.0); Mean Corpuscular Volume 86.8 fL (80.0-100.0); Monocytes % (auto) 8.3 % (0.0-12.0); Neutrophils # (auto) 6.8 10 ^3/uL (1.6-8.6); Neutrophils % (auto) 60.1 % (37.0-80.0); Nucleated Red Blood Cells % 0.1 %; Red Blood Cells 4.25 10^6/uL (4.5-5.90); Red Cell Distribution Width 14.9 % (11.8-14.3)
[2021-07-13 14:25] LABS: Albumin 3.7 g/dL (3.4-5.0); BUN/Creatinine Ratio 17.1; Calcium 9.5 mg/dL (8.5-10.1); Potassium 4.3 mmol/L (3.5-5.1)
[2021-07-13 14:28] LABS: Bilirubin, Total 0.3 mg/dL (0.2-1.0); Total Protein 8.4 g/dL (6.4-8.2)
[2021-07-13 17:00] VITALS: BP 128/71
[2021-07-13] MEDS: traZODone HCL 50 MG TAB PO SCH (21:30)
[2021-07-13 22:00] VITALS: BP 117/72
[2021-07-14 05:00] VITALS: BP 97/56
[2021-07-14 09:00] VITALS: BP 114/69
[2021-07-14] MEDS: PANTOPRAZOLE 40 MG TAB PO SCH ×3 (10:00→22:54)
[2021-07-14] MEDS: QUEtiapine FUMARATE 25 MG TAB PO SCH ×3 (10:00→22:54)
[2021-07-14] MEDS: EMTRICITABINE 200 MG PO SCH (10:00)
[2021-07-14] MEDS: OLANZapine 5 MG TAB PO SCH (10:00)
[2021-07-14] MEDS: SODIUM CHLOR 0.9% PF (SALINE LOCK) 10ML VIAL/SYR IV SCH ×2 (10:00→21:23)
[2021-07-14] MEDS: clonazePAM 0.5 MG TAB PO SCH ×3 (10:00→22:54)
[2021-07-14 12:46] VITALS: BP 114/67
[2021-07-14 16:42] VITALS: BP 119/74
[2021-07-14] MEDS: traZODone HCL 50 MG TAB PO SCH ×2 (21:24→22:54)
[2021-07-15] MEDS: LORazepam 0.5 MG TAB PO PRN (00:24)
[2021-07-15 09:00] VITALS: BP 115/72
[2021-07-15] MEDS: QUEtiapine FUMARATE 25 MG TAB PO SCH ×2 (09:27→22:09)
[2021-07-15] MEDS: OLANZapine 5 MG TAB PO SCH (09:27)
[2021-07-15] MEDS: SODIUM CHLOR 0.9% PF (SALINE LOCK) 10ML VIAL/SYR IV SCH (09:32)
[2021-07-15] MEDS: EMTRICITABINE 200 MG PO SCH (09:32)
[2021-07-15] MEDS: PANTOPRAZOLE 40 MG TAB PO SCH ×2 (09:33→22:10)
[2021-07-15 13:00] VITALS: BP 109/59
[2021-07-15 17:00] VITALS: BP 114/68
[2021-07-15] MEDS: traZODone HCL 50 MG TAB PO SCH (22:09)
[2021-07-15 22:27] VITALS: BP 124/55
[2021-07-16 06:07] VITALS: BP 126/65
[2021-07-16 09:00] VITALS: BP 126/76
[2021-07-16] MEDS: QUEtiapine FUMARATE 25 MG TAB PO SCH ×2 (09:30→21:42)
[2021-07-16] MEDS: OLANZapine 5 MG TAB PO SCH (09:30)
[2021-07-16] MEDS: PANTOPRAZOLE 40 MG TAB PO SCH ×2 (09:30→21:42)
[2021-07-16] MEDS: SODIUM CHLOR 0.9% PF (SALINE LOCK) 10ML VIAL/SYR IV SCH ×2 (10:00→21:36)
[2021-07-16] MEDS: EMTRICITABINE 200 MG PO SCH (10:00)
[2021-07-16 13:00] VITALS: BP 123/70
[2021-07-16 17:00] VITALS: BP 119/76
[2021-07-16] MEDS: traZODone HCL 50 MG TAB PO SCH (21:36)
[2021-07-16] MEDS: LORazepam 0.5 MG TAB PO PRN (23:39)
[2021-07-17 05:00] VITALS: BP 125/77
[2021-07-17] MEDS: OLANZapine 5 MG TAB PO SCH (08:33)
[2021-07-17] MEDS: QUEtiapine FUMARATE 25 MG TAB PO SCH (08:34)
[2021-07-17] MEDS: PANTOPRAZOLE 40 MG TAB PO SCH (08:34)
[2021-07-17] MEDS: EMTRICITABINE 200 MG PO SCH (08:34)
[2021-07-17] MEDS: SODIUM CHLOR 0.9% PF (SALINE LOCK) 10ML VIAL/SYR IV SCH (10:00)
== END 2021-07-17 10:07 | disposition left against medical advice (07) | DRG 817 ==
LOC: ER 16:10 → EDUNIT# 16:10 → EDBD 16:10 → TELE 22:02 → ICU WEST 06-19 05:16 → TELE-WESTW 07-05 23:53 → TELE-CENTR 07-06 16:10 → CENTRAL 07-14 16:38
PROVIDERS: ADMIT Nurse Practitioner Family; ATTEND Nurse Practitioner
PROC: 5A1955Z Respiratory Ventilation, Greater than 96 Consecutive Hours (ICD-10-PCS; principal; 2021-06-18)
PROC: 0BH17EZ Insertion of Endotracheal Airway into Trachea, Via Natural or Artificial Opening (ICD-10-PCS; 2021-06-18)
PROC: 02H633Z Insertion of Infusion Device into Right Atrium, Percutaneous Approach (ICD-10-PCS; 2021-06-19)
PROC: B548ZZA Ultrasonography of Superior Vena Cava, Guidance (ICD-10-PCS; 2021-06-19)
PROC: 0DJ08ZZ Inspection of Upper Intestinal Tract, Via Natural or Artificial Opening Endoscopic (ICD-10-PCS; 2021-06-27)
DX: T42.4X2A Poisoning by benzodiazepines, intentional self-harm, initial encounter (principal); J96.01 Acute respiratory failure with hypoxia; J69.0 Pneumonitis due to inhalation of food and vomit; G93.41 Metabolic encephalopathy; F31.2 Bipolar disorder, current episode manic severe with psychotic features; F60.3 Borderline personality disorder; K29.70 Gastritis, unspecified, without bleeding; D64.9 Anemia, unspecified; F41.9 Anxiety disorder, unspecified; F19.10 Other psychoactive substance abuse, uncomplicated; Z53.29 Procedure and treatment not carried out because of patient's decision for other reasons; Z20.822 Contact with and (suspected) exposure to COVID-19; Z79.899 Other long term (current) drug therapy; Z91.5 Personal history of self-harm; Z56.0 Unemployment, unspecified; Y92.89 Other specified places as the place of occurrence of the external cause
CPT/HCPCS: 36415; 36569; 36600; 43235; 70450; 71045; 71260; 74018; 80048; 80053; 80307; 80320; 80329; 81001; 82270; 82550; 82805; 83036; 83605; 83735; 84100; 85007; 85025; 85027; 85610; 85730; 86592; 86703; 86704; 86706; 86708; 86803; 86850; 86900; 86901; 87040; 87070; 87077; 87081; 87086; 87205; 87340; 87426; 92610; 93005; 94002; 94003; 94640; 94668; 95819; 96361; 96365; 96366; 96372; 96375; 96376; 97110; 97116; 97163; 97530; 99291; A4565; A4618; C9113; G0378; J0330; J0561; J0696; J2250; J2704; J3480; J3490; J7060

== ENCOUNTER 2021-10-06 19:27 | Emergency (ER) | payer MEDICAID ==
[~2021-10-06] VITALS: Ht 170.2 cm; Wt 86.2 kg
[~2021-10-06 19:27] MED LIST: BUPR100T15 PO; DIVA500T2 PO; OLAN10TA PO; TRAZ100T3 PO; [UNRECOGNIZED DRUG - CODE] IM
[2021-10-06] MEDS ORDERED: LORazepam 2MG/ML-1ML VIAL IV ONE (19:45)
[2021-10-06] MEDS ORDERED: SODIUM CHLORIDE 0.9% 1,000 ML IV ONE (19:45)
[2021-10-06 20:22] LABS: Basophils # (auto) 0 10 ^3/uL (0-0.2); Basophils % (auto) 0.3 % (0.0-2.0); Eosinophils # (auto) 0 10 ^3/uL (0-0.8); Eosinophils % (auto) 0.1 % (0.0-7.0); Hematocrit 44.1 % (41.0-53.0); Hemoglobin 14.9 g/dL (13.5-17.5); Lymphocytes # (auto) 3.1 10 ^3/uL (0.4-5.4); Lymphocytes % (auto) 18.6 % (10.0-50.0); Mean Corpuscular Hemoglobin 27.3 pg (28.0-32.0); Mean Corpuscular Hgb Conc. 33.8 g/dL (32.0-36.0); Mean Corpuscular Volume 80.7 fL (80.0-100.0); Monocytes # (auto) 1.4 10 ^3/uL (0-1.3); Monocytes % (auto) 8.8 % (0.0-12.0); Neutrophils # (auto) 11.9 10 ^3/uL (1.6-8.6); Neutrophils % (auto) 72.2 % (37.0-80.0); Nucleated Red Blood Cells % 0.2 %; Red Blood Cells 5.47 10^6/uL (4.5-5.90); White Blood Cell 16.4 10^3/uL (4.4-10.8)
[2021-10-06 20:32] LABS: Albumin 4.3 g/dL (3.4-5.0); Anion Gap 13 (5-15); Blood Alcohol < 3.0 mg/dL (0-5); Blood Urea Nitrogen 37 mg/dL (7-18); Calcium 8.9 mg/dL (8.5-10.1); Carbon Dioxide 22 mmol/L (21-32); Chloride 102 mmol/L (98-107); Glucose 92 mg/dL (74-106); Potassium 3.7 mmol/L (3.5-5.1); Sodium 137 mmol/L (136-145)
[2021-10-06 20:36] LABS: Alanine Aminotransferase 51 U/L (16-61); Alkaline Phosphatase 86 U/L (45-117); Aspartate Aminotransferase 47 U/L (15-37); BUN/Creatinine Ratio 23.9; Bilirubin, Total 1.3 mg/dL (0.2-1.0); GFR African American 67 mL/min; GFR Non-African American 55 mL/min; Total Protein 8.4 g/dL (6.4-8.2)
[2021-10-07 07:02] LABS: Amphetamine Screen, Urine POSITIVE (NEGATIVE); Barbiturate Scree,Urine NEGATIVE (NEGATIVE); Benzodiazephine Screen, Urine NEGATIVE (NEGATIVE); Cannabinoid Screen, Urine NEGATIVE (NEGATIVE); Cocaine Screen, Urine NEGATIVE (NEGATIVE); Opiate Scree,Urine NEGATIVE (NEGATIVE); Phencyclidine Screen, Urine NEGATIVE (NEGATIVE)
[2021-10-07] MEDS ORDERED: SODIUM CHLORIDE 0.9% 1,000 ML IV ONE (13:00)
[2021-10-07 13:46] LABS: Basophils # (auto) 0 10 ^3/uL (0-0.2); Basophils % (auto) 0.2 % (0.0-2.0); Eosinophils # (auto) 0.2 10 ^3/uL (0-0.8); Hematocrit 41.5 % (41.0-53.0); Hemoglobin 14.3 g/dL (13.5-17.5); Lymphocytes # (auto) 1.8 10 ^3/uL (0.4-5.4); Lymphocytes % (auto) 21.2 % (10.0-50.0); Mean Corpuscular Hemoglobin 27.7 pg (28.0-32.0); Mean Corpuscular Hgb Conc. 34.4 g/dL (32.0-36.0); Mean Corpuscular Volume 80.4 fL (80.0-100.0); Monocytes # (auto) 0.7 10 ^3/uL (0-1.3); Monocytes % (auto) 8.2 % (0.0-12.0); Neutrophils # (auto) 5.8 10 ^3/uL (1.6-8.6); Neutrophils % (auto) 68.4 % (37.0-80.0); Red Blood Cells 5.16 10^6/uL (4.5-5.90); Red Cell Distribution Width 14.2 % (11.8-14.3); White Blood Cell 8.5 10^3/uL (4.4-10.8)
[2021-10-07 13:49] LABS: Calcium 8.5 mg/dL (8.5-10.1); Potassium 3.9 mmol/L (3.5-5.1)
[2021-10-07 13:51] LABS: BUN/Creatinine Ratio 26.8
[2021-10-07 18:14] LABS: Urine Bacteria NONE SEEN /hpf (None Seen); Urine Blood Negative /uL (Negative); Urine Hyaline Cast MOD /lpf (0 - 2); Urine Mucus FEW (None Seen); Urine Specific Gravity 1.033 (1.001-1.035); Urine WBC 2 /hpf (0 - 3)
[2021-10-07 19:30] VITALS: BP 122/68
== END 2021-10-07 20:04 | disposition home or self-care (01) ==
LOC: ER 19:27 → EDBD 19:27 → ER 10-07 20:04
DX: R41.82 Altered mental status, unspecified (principal); F32.9 Major depressive disorder, single episode, unspecified; F20.9 Schizophrenia, unspecified; D72.829 Elevated white blood cell count, unspecified; F19.10 Other psychoactive substance abuse, uncomplicated
CPT/HCPCS: 36415; 70450; 71045; 80048; 80053; 80307; 80320; 81001; 85025; 87086; 96361; 96374; 99285; J2060; J7030

== ENCOUNTER 2021-11-18 17:13 | Emergency (ER) | payer MEDICAID ==
[~2021-11-18] VITALS: Ht 177.8 cm; Wt 99.8 kg
[2021-11-18 19:42] LABS: Basophils # (auto) 0.1 10 ^3/uL (0-0.2); Basophils % (auto) 0.9 % (0.0-2.0); Eosinophils # (auto) 0.2 10 ^3/uL (0-0.8); Eosinophils % (auto) 2.3 % (0.0-7.0); Hematocrit 47.7 % (41.0-53.0); Hemoglobin 16.7 g/dL (13.5-17.5); Lymphocytes # (auto) 2.5 10 ^3/uL (0.4-5.4); Lymphocytes % (auto) 29.4 % (10.0-50.0); Mean Corpuscular Hemoglobin 28.6 pg (28.0-32.0); Mean Corpuscular Hgb Conc. 34.9 g/dL (32.0-36.0); Monocytes # (auto) 0.5 10 ^3/uL (0-1.3); Monocytes % (auto) 5.6 % (0.0-12.0); Neutrophils # (auto) 5.4 10 ^3/uL (1.6-8.6); Neutrophils % (auto) 61.8 % (37.0-80.0); Nucleated Red Blood Cells % 0.1 %; Red Blood Cells 5.82 10^6/uL (4.5-5.90); Red Cell Distribution Width 15.2 % (11.8-14.3); White Blood Cell 8.7 10^3/uL (4.4-10.8)
[2021-11-18 20:22] LABS: Albumin 3.9 g/dL (3.4-5.0); Calcium 8.8 mg/dL (8.5-10.1); Potassium 4.1 mmol/L (3.5-5.1)
[2021-11-18 20:24] LABS: Salicylate < 1.7 mg/dL (2.8-20.0)
[2021-11-18 20:32] LABS: Acetaminophen < 2.0 ug/mL (10-30); Bilirubin, Total 0.5 mg/dL (0.2-1.0)
[2021-11-18 20:47] LABS: BUN/Creatinine Ratio 18.2; Total Protein 8.2 g/dL (6.4-8.2)
[2021-11-18 23:55] LABS: Urine Bacteria FEW /hpf (None Seen); Urine Blood TRACE /uL (Negative); Urine Hyaline Cast FEW /lpf (0 - 2); Urine Specific Gravity 1.025 (1.001-1.035); Urine WBC 4 /hpf (0 - 3)
[2021-11-19 00:27] LABS: Amphetamine Screen, Urine NEGATIVE (NEGATIVE); Barbiturate Scree,Urine NEGATIVE (NEGATIVE); Benzodiazephine Screen, Urine NEGATIVE (NEGATIVE); Cannabinoid Screen, Urine NEGATIVE (NEGATIVE); Cocaine Screen, Urine NEGATIVE (NEGATIVE); Opiate Scree,Urine NEGATIVE (NEGATIVE); Phencyclidine Screen, Urine NEGATIVE (NEGATIVE)
[2021-11-19] MEDS ORDERED: TETANUS-DIPTH-ACEL PERTUSSIS 0.5ML SYR Tdap IM ONE (00:45)
[2021-11-19 07:50] VITALS: BP 132/84
[2021-11-19] MEDS ORDERED: NEOMYCIN-BACITRACIN-POLYM 15GM TOP OINT TOP ONE (10:34)
== END 2021-11-19 10:51 | disposition home or self-care (01) ==
LOC: EDBD 17:13 → ER 17:13
DX: R45.851 Suicidal ideations (principal); F31.9 Bipolar disorder, unspecified; F20.9 Schizophrenia, unspecified
CPT/HCPCS: 36415; 80053; 80307; 80329; 81001; 85025; 87426; 90471; 90715

== ENCOUNTER 2022-03-23 20:18 | Emergency (ER) | payer MEDICAID ==
[~2022-03-23] VITALS: Ht 170.2 cm; Wt 86.2 kg
[2022-03-23] MEDS ORDERED: ACCU-CHEK COMFORT CURVE STRIP VI ONE (20:45)
[2022-03-23] MEDS ORDERED: SODIUM CHLORIDE 0.9% 1,000 ML IVB ONE (20:45)
[2022-03-23 20:53] LABS: Basophils # (auto) 0.1 10 ^3/uL (0-0.2); Basophils % (auto) 0.8 % (0.0-2.0); Eosinophils # (auto) 0.2 10 ^3/uL (0-0.8); Eosinophils % (auto) 1.7 % (0.0-7.0); Hematocrit 40.7 % (41.0-53.0); Hemoglobin 14.6 g/dL (13.5-17.5); Lymphocytes # (auto) 2.7 10 ^3/uL (0.4-5.4); Lymphocytes % (auto) 29.6 % (10.0-50.0); Mean Corpuscular Hgb Conc. 35.8 g/dL (32.0-36.0); Mean Corpuscular Volume 83.7 fL (80.0-100.0); Monocytes # (auto) 0.6 10 ^3/uL (0-1.3); Monocytes % (auto) 6.9 % (0.0-12.0); Neutrophils # (auto) 5.5 10 ^3/uL (1.6-8.6); Nucleated Red Blood Cells % 0.1 %; Red Blood Cells 4.87 10^6/uL (4.5-5.90); Red Cell Distribution Width 13.1 % (11.8-14.3)
[2022-03-23 21:12] LABS: Salicylate < 1.7 mg/dL (2.8-20.0)
[2022-03-23 21:17] LABS: Alanine Aminotransferase 96 U/L (16-61); Albumin 3.5 g/dL (3.4-5.0); Anion Gap 10 (5-15); Aspartate Aminotransferase 33 U/L (15-37); BUN/Creatinine Ratio 11.6; Blood Urea Nitrogen 11 mg/dL (7-18); Calcium 8.8 mg/dL (8.5-10.1); Carbon Dioxide 24 mmol/L (21-32); Chloride 109 mmol/L (98-107); GFR African American 117 mL/min; GFR Non-African American 96 mL/min; Glucose 110 mg/dL (74-106); Potassium 3.7 mmol/L (3.5-5.1); Sodium 143 mmol/L (136-145)
[2022-03-23 21:20] LABS: Alkaline Phosphatase 71 U/L (45-117); Bilirubin, Total 0.5 mg/dL (0.2-1.0); Total Protein 7.3 g/dL (6.4-8.2)
[2022-03-23 21:28] LABS: Acetaminophen < 2.0 ug/mL (10-30)
[2022-03-24] MEDS ORDERED: FOLIC ACID 1 MG, MULTIPLE VITAMIN 10 ML, MAGNESIUM SULF SDV 50% 8 MEQ, THIAMINE INJ 100... INJ SCH ×5 (12:00)
[2022-03-24 13:13] LABS: Alcohol, Urine < 3.0 mg/dL (0-10); Amphetamine Screen, Urine NEGATIVE (NEGATIVE); Barbiturate Scree,Urine NEGATIVE (NEGATIVE); Benzodiazephine Screen, Urine NEGATIVE (NEGATIVE); Cannabinoid Screen, Urine NEGATIVE (NEGATIVE); Cocaine Screen, Urine NEGATIVE (NEGATIVE); Opiate Scree,Urine NEGATIVE (NEGATIVE); Phencyclidine Screen, Urine NEGATIVE (NEGATIVE)
[2022-03-24 13:27] LABS: Urine Bacteria NONE SEEN /hpf (None Seen); Urine Blood Negative /uL (Negative); Urine Mucus FEW (None Seen); Urine Specific Gravity 1.015 (1.001-1.035); Urine WBC 5 /hpf (0 - 3)
[2022-03-25] MEDS ORDERED: DIVA250T PO (08:01)
[2022-03-25] MEDS ORDERED: HAL5T PO (08:01)
[2022-03-25 08:02] VITALS: BP 120/79
[2022-03-25] MEDS ORDERED: THIAMINE HCL 100 MG TAB PO SCH (10:00)
[2022-03-25] MEDS ORDERED: FOLIC ACID 1 MG TAB PO SCH (10:00)
== END 2022-03-25 07:47 | disposition home or self-care (01) ==
LOC: ER 20:18
DX: T43.592A Poisoning by other antipsychotics and neuroleptics, intentional self-harm, initial encounter (principal); R41.82 Altered mental status, unspecified; G92.9 Unspecified toxic encephalopathy; F41.9 Anxiety disorder, unspecified; F20.9 Schizophrenia, unspecified; F31.9 Bipolar disorder, unspecified; F15.10 Other stimulant abuse, uncomplicated; Z20.822 Contact with and (suspected) exposure to COVID-19; Y92.89 Other specified places as the place of occurrence of the external cause
CPT/HCPCS: 36415; 70450; 71045; 80053; 80307; 80320; 80329; 81001; 82962; 85025; 87426; 93005; 96361; 96365; 96366; 99291; J7030